=== PATIENT | female | born 1985 | race Caucasian/White ===

== ENCOUNTER 2017-05-25 09:31 | Emergency (ER) | payer OTHER ==
[2017-05-25] MEDS ORDERED: Promethazine INJ(RESTRICTED)* 25 MG/ML 1 ML VIAL IV ONE (10:48)
--- NOTE | 2017-05-25 11:04 | RAD ---
INDICATION: Shortness of breath, history of endocarditis. COMPARISON: There are no prior studies available for comparison. TECHNIQUE: A portable view of the chest was obtained. FINDINGS: The patient is status poststernotomy. The heart is within normal limits in size. The lungs are clear. No pleural effusion is seen. IMPRESSION: POSTSURGICAL CHANGES, NO EVIDENCE FOR ACUTE FINDING.
[2017-05-25 11:48] LABS: ALT 47 U/L (7-52); AST 50 U/L (13-39); Albumin 3.9 g/dL (3.2-5.2); Alkaline Phosphatase 103 U/L (34-104); Anion Gap 6 mmol/L (2-11); BUN/Creatinine Ratio 22.2 (8-20); Blood Urea Nitrogen 16 mg/dL (6-24); C Reactive Protein < 1.00 mg/L (< 5.00); CO2 Carbon Dioxide 24 mmol/L (22-32); Calcium 9.4 mg/dL (8.6-10.3); Chloride 105 mmol/L (101-111); EGFR African American 123.2 (>60); EGFR Non-African American 95.8 (>60); Globulin 3.1 g/dL (2-4); Glucose 120 mg/dL (70-100); Magnesium 2.1 mg/dL (1.9-2.7); Potassium 4.2 mmol/L (3.5-5.0); Sodium 135 mmol/L (133-145)
[2017-05-25 11:49] LABS: Urine Bacteria Absent (Absent); Urine Bilirubin Negative (Negative); Urine Glucose Negative (Negative); Urine Nitrite Negative (Negative)
[2017-05-25] MEDS ORDERED: PROMETHAZINE IVPB ONE (12:00)
[2017-05-25] MEDS ORDERED: NS 0.9% IVPB ONE (12:00)
[2017-05-25 13:54] LABS: Hematocrit 38 % (35-47); Hemoglobin 12.5 g/dl (12.0-16.0); Mean Corpuscular HGB Conc 33 g/dl (31-36); Mean Corpuscular Hemoglobin 29 pg (27-31); Mean Corpuscular Volume 89 fL (80-97); Mean Platelet Volume 7 um3 (7.4-10.4); Red Blood Count 4.29 10^6/ul (4.0-5.4); Red Cell Distribution Width 17 % (10.5-15); White Blood Count 5.3 10^3/ul (3.5-10.8)
--- NOTE | 2017-05-25 14:24 | ED ---
HPI Cardiac - HPI Summary HPI Summary: Pt here w/ SOB and KISER x 1 week - associated sx of hand/feet swelling. Went to [facility] - no answers for cause of sx. Went to [place] Thursday. D/ t h/o endocarditis w/ AVR, she had slightly elevated BNP (150's) and echo which showed some fluid. Pt was started on IV lasix and sent home w/ PO lasix which she's continued to take. Hands and feet are not as swollen today but SOB/KISER has not improved. She takes coumadin and last INR last week was 2.9. She missed a dose last night but took dose this morning. Denies fever, chills, cough, back pain, tachycardia, palpitations. Smokes tobacco. Nausea w/o vomiting - zofran gives her TELLEZ -prefers phenergan. No ab pain, diarrhea. 8 weeks post - developed a hematoma after and was given narcotic for pain control. Reports she withdrew on her own 2 weeks ago. After, she started drinking poppy seed tea to help w/ her anxiety - unfortunately this had opioid effects and she stopped that but was started on clonidine and xanax - feels these are helping withdrawal and has been on these for 5 days now. Follows w/ PCP - no formal counselor or MH support at this time. Sleeping okay w/ but sometimes she doesn't. Partner took off from work when she had hematoma but hasn't been off lately -had to go back to work. - History of Current Complaint Chief Complaint: EDShortnessOfBreath Stated Complaint: SOB/WEAK Time Seen by Provider: 05/25/17 10:16 Hx Obtained From: Patient, Family/Chief Solution Architect - Pain Intensity: 0 - Allergy/Home Medications Allergies/Adverse Reactions: Allergies Allergy/AdvReac Type Severity Reaction Status Date / Time No Known Allergies Allergy Verified 05/25/17 09:59 Home Medications: Home Medications ALPRAZolam TAB* [Xanax TAB*] 0.5 mg PO Q8H 05/25/17 [History Confirmed 05/25/17] Warfarin TAB(*) [Coumadin TAB(*)] 5 mg PO .Q TUES/TH05/25/17 [History Confirmed 05/25/17] Warfarin TAB(*) [Coumadin TAB(*)] 6 mg PO .Q M,W,F,SA,JOINER 05/25/17 [History Confirmed 05/25/17] cloNIDine TAB* [Catapres 0.1 MG TAB*] 0.1 mg PO Q8H 05/25/17 [History Confirmed 05/25/17] PMH/Surg Hx/FS Hx/Imm Hx Previously Healthy: Yes Endocrine/Hematology History: Reports: Hx Anticoagulant Therapy - coumadin, Other Endocrine/Hematological Disorders - pelvic hematoma s/p delivery of child in March 2017 Denies: Hx Diabetes Cardiovascular History: Reports: Hx Valvular Heart Disease - AVR, Other Cardiovascular Problems/Disorders - ENDOCARDITIS w/ AVR Denies: Hx Congestive Heart Failure, Hx Hypertension Respiratory History: Denies: Hx Asthma, Hx Chronic Obstructive Pulmonary Disease (COPD) GI History: Reports: Other GI Disorders - Hep C History: Denies: Hx Renal Disease Psychiatric History: Reports: Hx Anxiety, Hx Depression, Hx Substance Abuse - opioids, ivda - Surgical History Surgery Procedure, Year, and Place: AORTIC VALVE REPLACEMENT- 03/2014. RT. OOPHORECTOMY Infectious Disease History: No Infectious Disease History: Reports: Hx Hepatitis - c Denies: Traveled Outside the [place] in Last 30 Days - Family History Known Family History: Positive: None - Social History Lives: With Family Alcohol Use: Occasionally Hx Substance Use: Yes Substance Use Type: Reports: Prescribed Substance Use Comment - Amount & Last Used: hx of iv drug use- Quit 2010 /On Xanax/Clonodine Hx Tobacco Use: Yes Smoking Status (MU): Current Every Day Smoker Review of Systems Constitutional: Negative Negative: Fever, Chills, Fatigue Eyes: Negative ENT: Negative Cardiovascular: Negative Positive: Shortness Of Breath - W/ KISER Positive: Nausea. Negative: Abdominal Pain, Vomiting, Diarrhea Positive: no symptoms reported Musculoskeletal: Negative Skin: Negative Neurological: Negative Psychological: Other - see HPI All Other Systems Reviewed And Are Negative: Yes Physical Exam Triage Information Reviewed: Yes Vital Signs On Initial Exam: Initial Vitals Temp Pulse Resp BP Pulse Ox 96.6 F 80 20 118/83 100 05/25/17 09:34 05/25/17 09:34 05/25/17 09:34 05/25/17 09:34 05/25/17 09:34 Vital Signs Reviewed: Yes Appearance: Positive: Well-Appearing - no SOB at rest, resting comfortably on stretcher, No Pain Distress, Well-Nourished Skin: Positive: Warm, Dry Head/Face: Positive: Normal Head/Face Inspection Eyes: Positive: Normal, EOMI ENT: Positive: Hearing grossly normal, Pharynx normal - mucosa moist Neck: Positive: Supple Respiratory/Lung Sounds: Positive: Clear to Auscultation, Breath Sounds Present. Negative: Rales, Rhonchi, Wheezes, Unable to speak in full sentences - speaking in full sentences w/o difficulty, hesitation or interruption - no coughing Cardiovascular: Positive: RRR, Pulses are Symmetrical in both Upper and Lower Extremities, Other - NTTP, S1 - mechanical valve sounds, S2. Negative: Rub, Leg Edema Left, Leg Edema Right Abdomen Description: Positive: Nontender, Soft - no ascites Bowel Sounds: Positive: Present Musculoskeletal: Positive: Normal, Strength/ROM Intact Neurological: Positive: Normal, Sensory/Motor Intact, Alert, Oriented to Person Place, Time, CN Intact II-III Psychiatric: Positive: Other - concerned but calm and cooperative - [place] Coma Scale Coma Scale Total: 15 Diagnostics - Vital Signs Vital Signs Temp Pulse Resp BP Pulse Ox 05/25/17 13:49 100 05/25/17 13:30 53 22 118/73 97 05/25/17 13:06 67 22 113/70 97 05/25/17 13:03 103 97 05/25/17 12:30 53 23 125/78 99 05/25/17 12:00 50 22 137/83 99 05/25/17 11:30 51 20 137/83 97 05/25/17 11:00 61 14 152/82 97 05/25/17 10:30 142/78 05/25/17 10:00 61 13 135/84 99 05/25/17 09:54 97.9 F 63 17 140/86 99 05/25/17 09:51 62 99 05/25/17 09:34 96.6 F 80 20 118/83 100 - Laboratory Lab Results: Lab Results 05/25/17 05/25/17 05/25/17 Range/Units 11:22 11:22 11:22 WBC (3.5-10.8) 10^3/ul RBC (4.0-5.4) 10^6/ul Hgb (12.0-16.0) g/dl Hct (35-47) % MCV (80-97) fL MCH (27-31) pg MCHC (31-36) g/dl RDW (10.5-15) % Plt Count (150-450) 10^3/ul MPV (7.4-10.4) um3 Neut % (Auto) (38-83) % Lymph % (Auto) (25-47) % [place] % (Auto) (1-9) % Eos % (Auto) (0-6) % Baso % (Auto) (0-2) % Absolute Neuts (auto) (1.5-7.7) 10^3/ul Absolute Lymphs (auto) (1.0-4.8) 10^3/ul Absolute Monos (auto) (0-0.8) 10^3/ul Absolute Eos (auto) (0-0.6) 10^3/ul Absolute Basos (auto) (0-0.2) 10^3/ul Absolute Nucleated RBC 10^3/ul Nucleated RBC % INR (Anticoag Therapy) 1.62 H (0.89-1.11) APTT 44.5 H (26.0-36.3) seconds D-Dimer, Quantitative < 200 (Less Than 230) ng/mL Sodium 135 (133-145) mmol/L Potassium 4.2 (3.5-5.0) mmol/L Chloride 105 (101-111) mmol/L Carbon Dioxide 24 (22-32) mmol/L Anion Gap 6 (2-11) mmol/L BUN 16 (6-24) mg/dL Creatinine 0.72 (0.51-0.95) mg/dL Est GFR ( Amer) 123.2 (>60) Est GFR (Non-Af Amer) 95.8 (>60) BUN/Creatinine Ratio 22.2 H (8-20) Glucose 120 H (70-100) mg/dL Calcium 9.4 (8.6-10.3) mg/dL Magnesium 2.1 (1.9-2.7) mg/dL Total Bilirubin 0.40 (0.2-1.0) mg/dL AST 50 H (13-39) U/L ALT 47 (7-52) U/L Alkaline Phosphatase 103 (34-104) U/L Troponin I 0.00 (<0.04) ng/mL C-Reactive Protein < 1.00 (< 5.00) mg/L B-Natriuretic Peptide 50 ( - 100) pg/mL Total Protein 7.0 (6.4-8.9) g/dL Albumin 3.9 (3.2-5.2) g/dL Globulin 3.1 (2-4) g/dL Albumin/Globulin Ratio 1.3 (1-3) Urine Color Urine Appearance Urine pH (5-9) Ur Specific [place] (1.010-1.030) Urine Protein (Negative) Urine Ketones (Negative) Urine Blood (Negative) Urine Nitrate (Negative) Urine Bilirubin (Negative) Urine Urobilinogen (Negative) Ur Leukocyte Esterase (Negative) Urine WBC (Auto) (Absent) Urine RBC (Auto) (Absent) Ur Squamous Epith Cells (Absent) Amorphous Crystals (Absent) Urine Bacteria (Absent) Urine Glucose (Negative) 05/25/17 05/25/17 Range/Units 11:22 11:28 WBC 5.3 (3.5-10.8) 10^3/ul RBC 4.29 (4.0-5.4) 10^6/ul Hgb 12.5 (12.0-16.0) g/dl Hct 38 (35-47) % MCV 89 (80-97) fL MCH 29 (27-31) pg MCHC 33 (31-36) g/dl RDW 17 H (10.5-15) % Plt Count 305 (150-450) 10^3/ul MPV 7 L (7.4-10.4) um3 Neut % (Auto) 77.3 (38-83) % Lymph % (Auto) 16.2 L (25-47) % [place] % (Auto) 5.3 (1-9) % Eos % (Auto) 0.5 (0-6) % Baso % (Auto) 0.7 (0-2) % Absolute Neuts (auto) 4.1 (1.5-7.7) 10^3/ul Absolute Lymphs (auto) 0.9 L (1.0-4.8) 10^3/ul Absolute Monos (auto) 0.3 (0-0.8) 10^3/ul Absolute Eos (auto) 0 (0-0.6) 10^3/ul Absolute Basos (auto) 0 (0-0.2) 10^3/ul Absolute Nucleated RBC 0 10^3/ul Nucleated RBC % 0.1 INR (Anticoag Therapy) (0.89-1.11) APTT (26.0-36.3) seconds D-Dimer, Quantitative (Less Than 230) ng/mL Sodium (133-145) mmol/L Potassium (3.5-5.0) mmol/L Chloride (101-111) mmol/L Carbon Dioxide (22-32) mmol/L Anion Gap (2-11) mmol/L BUN (6-24) mg/dL Creatinine (0.51-0.95) mg/dL Est GFR ( Amer) (>60) Est GFR (Non-Af Amer) (>60) BUN/Creatinine Ratio (8-20) Glucose (70-100) mg/dL Calcium (8.6-10.3) mg/dL Magnesium (1.9-2.7) mg/dL Total Bilirubin (0.2-1.0) mg/dL AST (13-39) U/L ALT (7-52) U/L Alkaline Phosphatase (34-104) U/L Troponin I (<0.04) ng/mL C-Reactive Protein (< 5.00) mg/L B-Natriuretic Peptide ( - 100) pg/mL Total Protein (6.4-8.9) g/dL Albumin (3.2-5.2) g/dL Globulin (2-4) g/dL Albumin/Globulin Ratio (1-3) Urine Color Yellow Urine Appearance Cloudy Urine pH 7.0 (5-9) Ur Specific [place] 1.012 (1.010-1.030) Urine Protein Negative (Negative) Urine Ketones Negative (Negative) Urine Blood 2+ H (Negative) Urine Nitrate Negative (Negative) Urine Bilirubin Negative (Negative) Urine Urobilinogen Negative (Negative) Ur Leukocyte Esterase 1+ H (Negative) Urine WBC (Auto) 1+(6-10/hpf) H (Absent) Urine RBC (Auto) Trace(0-2/hpf) (Absent) Ur Squamous Epith Cells Present H (Absent) Amorphous Crystals Present H (Absent) Urine Bacteria Absent (Absent) Urine Glucose Negative (Negative) Result Diagrams: 05/25/17 11:22 05/25/17 11:22 Lab Statement: Any lab studies that have been ordered have been reviewed, and results considered in the medical decision making process. Disposition - Course Course Of Treatment: Pt presents w/ 1 week h/o SOB/KISER/HAND&FOOT SWELLING. Was most recently seen by Cait who found "BNP to be in 150's" and "echocardiogram w / little fluid" per . She has h/o AVR and take coumadin which is not in therapeutic (1.6) - DDIMER was checked and < 200. BNP 50. Labs and vital signs are unremarkable for infection. CXR is w/o acute pathology. Discussed results with Dr. Langley who feels pt is okay for d/c w/o echocardiogram today however needs f/u w/ Clarke. Pt advised to continue lasix as directed because it seems to be helping. Reviewed danger s/sx of when to return to ED. Also encouraged to continue plan w/ PCP re: detox/withdrawal sx and advised referral to counselor. Pt and agree w/ plan. - Diagnoses Provider Diagnoses: SOB (shortness of breath) on exertion, S/P AVR, Anxiety - Physician Notifications Discussed Care Of Patient With: Devin Langley - okay to d/c w/o further testing for cardiac path - f/u w/ Dr. Mir Discharge - Discharge Plan Condition: Stable Disposition: HOME Prescriptions: Promethazine TAB* [Phenergan TAB*] 25 mg PO Q6H PRN #12 tab PRN Reason: Nausea Patient Education Materials: Dyspnea (ED), Opioid Withdrawal (ED) Referrals: Homero MOSES,Jean Carlos Cano [Primary Care Provider] - Inderjit Mir MD [Medical Doctor] - Additional Instructions: Continue lasix as directed Avoid exertion/exercise until cleared by Dr. Mir - call today to schedule follow-up appointment this week in the event further testing is required. *If you develop fever, chills, worsening of shortness of breath, chest pain, intractable vomiting, abdominal pain, syncope, abnormal bleeding, return to ED It is also advised you follow-up with PCP regarding opioid dependence/ withdrawal symptoms - do not stop medications - speak with PCP about further treatment, etc. May seek counseling for anxiety - will help in the process of dealing with withdrawal, taking care of a , etc. *If you develop suicidal or homicidal ideations, return to ED Follow-up with PCP regarding coumadin leve as well - not therapeutic today - may need increased dose with blood recheck in 3 days.
[2017-05-25 15:21] VITALS: BP 115/68
== END 2017-05-25 15:23 | disposition home or self-care (01) ==
LOC: ED 09:31
DX: R06.02 Shortness of breath (principal); R11.0 Nausea
CPT/HCPCS: 36415; 71010; 80053; 81003; 81015; 83735; 83880; 84484; 85025; 85379; 85610; 85730; 86140; 87040; 87086; 93005; 96365; 99282; J2550

== ENCOUNTER 2018-04-24 19:49 | Emergency (ER) | payer OTHER ==
--- NOTE | 2018-04-24 20:12 | ED ---
Palpitations / Dysrhythmia - HPI Summary HPI Summary: This patient is a 32 year old F presenting to [facility] with a chief complaint of palpitations that began 2 days ago. The patient rates the pain 0/10 in severity. Symptoms aggravated by nothing. Symptoms alleviated by nothing. Patient reports fatigue, diarrhea (began one week ago), dysuria, headache ( chronic), anxiety, and depression. Patient denies double vision, blurred vision , sore throat, neck pain, CP, SOB, abd pain, back pain, hematuria, and edema. Pt had an aortic valve replacement for endocarditis in 2013. Pt states she is on Coumadin, but has not checked her Coumadin levels in a little while. - History of Current Complaint Chief Complaint: EDDysrhythmPalp Hx Obtained From: Patient Onset/Duration: Sudden Onset, Lasting Days, Still Present Timing: Constant Severity Initially: Mild Severity Currently: Mild Character: Pounding Aggravating: Nothing Alleviating: Nothing - Allergy/Home Medications Allergies/Adverse Reactions: Allergies Allergy/AdvReac Type Severity Reaction Status Date / Time No Known Allergies Allergy Verified 05/25/17 09:59 Home Medications: Home Medications Omeprazole 20 mg PO DAILY 04/24/18 [History Confirmed 04/24/18] PMH/Surg Hx/FS Hx/Imm Hx Previously Healthy: No Endocrine/Hematology History: Reports: Hx Anticoagulant Therapy - coumadin, Other Endocrine/Hematological Disorders - pelvic hematoma s/p delivery of child in March 2017 Denies: Hx Diabetes Cardiovascular History: Reports: Hx Valvular Heart Disease - AVR, Other Cardiovascular Problems/Disorders - ENDOCARDITIS w/ AVR Denies: Hx Congestive Heart Failure, Hx Hypertension Respiratory History: Denies: Hx Asthma, Hx Chronic Obstructive Pulmonary Disease (COPD) GI History: Reports: Other GI Disorders - Hep C History: Denies: Hx Renal Disease Psychiatric History: Reports: Hx Anxiety, Hx Depression, Hx Substance Abuse - opioids, ivda - Surgical History Surgery Procedure, Year, and Place: AORTIC VALVE REPLACEMENT- 03/2014. RT. OOPHORECTOMY Infectious Disease History: No Infectious Disease History: Reports: Hx Hepatitis - c Denies: Traveled Outside the [place] in Last 30 Days - Family History Known Family History: Positive: None - Social History Occupation: Employed Full-time Lives: With Family Alcohol Use: Occasionally Hx Substance Use: Yes Substance Use Type: Reports: Prescribed Substance Use Comment - Amount & Last Used: hx of iv drug use- Quit 2010 /On Xanax/Clonodine Hx Tobacco Use: Yes Smoking Status (MU): Current Every Day Smoker Review of Systems Positive: Fatigue. Negative: Fever Negative: Blurred Vision, Diplopia Negative: Sore Throat Negative: Chest Pain Negative: Shortness Of Breath Positive: Diarrhea. Negative: Abdominal Pain Positive: dysuria Negative: Edema Negative: Bruising Positive: Headache Positive: Anxious, Depressed All Other Systems Reviewed And Are Negative: No Physical Exam - Summary Physical Exam Summary: Appearance: Alert, conversive, nontoxic appearing Skin: Warm, dry, no mottling, no rashes, no contusions HEENT: EOMI, PERRL, moist mucous membranes Neck: No masses on the neck, supple Respiratory: Clear to auscultation, breath sounds present, no rales, no rhonchi , no wheezes Cardiovascular: RRR, pulses are symmetrical in both lower and upper extremities Abdomen: Soft, non-tender Bowel Sounds: Present Musculoskeletal: No CVA tenderness, no obvious deformity, moving all extremities in a grossly normal manner Neurological: A&Ox3, CN II-XII Intact, moving all extremities symmetrically Psychiatric: Normal affect and mood Triage Information Reviewed: Yes Vital Signs On Initial Exam: Initial Vitals Temp Pulse Resp BP Pulse Ox 97.3 F 90 18 133/93 100 04/24/18 19:54 04/24/18 19:54 04/24/18 19:54 04/24/18 19:54 04/24/18 19:54 Vital Signs Reviewed: Yes Diagnostics - Vital Signs Vital Signs Temp Pulse Resp BP Pulse Ox 04/24/18 19:54 97.3 F 90 18 133/93 100 - Laboratory Result Diagrams: 04/24/18 21:17 04/24/18 21:17 Lab Statement: Any lab studies that have been ordered have been reviewed, and results considered in the medical decision making process. - Radiology CXR Radiology Interpretation Completed By: ED Physician - CXR reveals, per ED physician, no acute disease. 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 Performed a butterfly on L EJ Second Eval Re-Evaluation Time: 22:52 Change: Unchanged Comment: Discussed results and plan of care with patient. Patient reports she has been having constant vaginal bleeding for the last three months. Course/Dx - Course Course Of Treatment: This patient is a 32 year old F presenting to [facility] with a chief complaint of palpitations that began 2 days ago. Pt had an aortic valve replacement for endocarditis in 2013. Physical Exam Findings: Nml. An EKG reveals normal sinus rhythm at 83 BPM and an old inferior infarct. CXR reveals, per ED physician, no acute disease. Bloodwork and UA obtained. In the ED course the patient was given morphine. Patient will be discharged with follow up from PCP. The patient is agreeable with this plan. - Diagnoses Provider Diagnoses: Iron deficiency, Anemia Discharge - Sign-Out/Discharge Documenting (check all that apply): Patient Departure - Discharge home - Discharge Plan Referrals: Homero MOSES,Jean Carlos Cano [Primary Care Provider] - Attestations Scribe Attestation: This is tal Alvarez documenting for attending Cheyanne Rodriguez MD. User Type: Provider with Scribe Provider Attestation: The documentation recorded by the scribe accurately reflects the service I personally performed and the decisions made by me.
[2018-04-24 20:43] LABS: Urine Appearance Clear; Urine Blood Negative (Negative); Urine Color Yellow; Urine Ketones Negative (Negative); Urine Protein Negative (Negative); Urine Specific Gravity 1.025 (1.010-1.030); Urine Urobilinogen Negative (Negative)
[2018-04-24 21:34] LABS: ABS Basophils 0.1 10^3/ul (0-0.2); ABS Eosinophils 0 10^3/ul (0-0.6); ABS Lymphocytes 1.6 10^3/ul (1.0-4.8); ABS Monocytes 0.4 10^3/ul (0-0.8); ABS Neutrophils 3.8 10^3/ul (1.5-7.7); ABS Nucleated RBC 0 10^3/ul; Hematocrit 30 % (35-47); Hemoglobin 9.6 g/dl (12.0-16.0); Mean Corpuscular HGB Conc 33 g/dl (31-36); Mean Corpuscular Hemoglobin 23 pg (27-31); Mean Corpuscular Volume 71 fL (80-97); Mean Platelet Volume 7.1 um3 (7.4-10.4); Platelet Count 339 10^3/ul (150-450); Red Blood Count 4.16 10^6/ul (4.00-5.40); Red Cell Distribution Width 17 % (10.5-15)
[2018-04-24 21:37] LABS: INR 2.88 (0.77-1.02)
[2018-04-24 21:41] LABS: EGFR Non-African American 76.4 (>60)
[2018-04-24] MEDS ORDERED: Morphine INJ* 2 MG/ML 1 ML SYRINGE (TWO MG - NEW SYRINGE VERSION) IM ONE (21:48)
[2018-04-24 22:05] LABS: Eosinophil % 0.8 % (0-6); Lymphocyte % 27.4 % (25-47); Nucleated Red Blood Cells % 0
[2018-04-24 23:16] VITALS: BP 120/80
--- NOTE | 2018-04-25 07:26 | RAD ---
HISTORY: palpitations COMPARISONS: May 25, 2017 VIEWS: 1: frontal portable view of the chest at 8:32 PM FINDINGS: LINES AND TUBES: None. CARDIOMEDIASTINAL SILHOUETTE: The cardiomediastinal silhouette is normal for portable technique. PLEURA: The costophrenic angles are sharp. No pleural abnormalities are noted. LUNG PARENCHYMA: The lungs are clear. ABDOMEN: The upper abdomen is clear. There is no subphrenic gas. BONES AND SOFT TISSUES: The patient is status post median sternotomy. IMPRESSION: NO ACTIVE CARDIOPULMONARY DISEASE. R1
== END 2018-04-24 23:14 | disposition home or self-care (01) ==
LOC: ED 19:49
DX: D50.9 Iron deficiency anemia, unspecified (principal); F17.200 Nicotine dependence, unspecified, uncomplicated; Z79.01 Long term (current) use of anticoagulants; Z95.2 Presence of prosthetic heart valve
CPT/HCPCS: 36415; 71045; 80053; 81003; 84443; 84702; 85025; 85610; 93005; 96372; 99283

== ENCOUNTER 2019-12-26 12:50 | Inpatient (IN) | payer OTHER ==
--- NOTE | 2019-12-26 13:06 | ED ---
Complex/Multi-Sys Presentation - HPI Summary HPI Summary: 34 year old F presenting to [facility] with a chief complaint of headaches, a fever, edema, a rash, shortness of breath, pain with breathing, and pus from a swollen area on her left arm where she had blood drawn 4 days ago. Symptoms aggravated by nothing. Symptoms alleviated by nothing. Patient denies any current sore throat. She reports a history of IV drug use but denies recent use. The patient is prescribed blood thinners. She states that she missed too many appointments with her ad copy writer who discontinued her care. She also reports drinking heavily during that time but denies current alcohol use. Medication list reviewed. Allergy list reviewed. - History Of Current Complaint Time Seen by Provider: 12/26/19 12:55 Hx Obtained From: Patient Onset/Duration: Still Present Timing: Constant Aggravating Factor(s): None Alleviating Factor(s): None - Allergies/Home Medications Allergies/Adverse Reactions: Allergies Allergy/AdvReac Type Severity Reaction Status Date / Time No Known Allergies Allergy Verified 05/25/17 09:59 Home Medications: Home Medications Warfarin TAB(*) [Coumadin TAB(*)] 6 mg PO MOWEFR 05/25/17 [History Confirmed ] Warfarin TAB(*) [Coumadin TAB(*)] 7 mg PO TUTHSA 05/25/17 [History Confirmed ] Amitriptyline TAB* [Elavil TAB*] 100 mg PO BEDTIME 12/26/19 [History Confirmed 12/26/19] Buprenorphine TAB* [Subutex TAB*] 2 mg SL TID 12/26/19 [History Confirmed ] Omeprazole (Nf) [Prilosec (NF)] 40 mg PO DAILY 12/26/19 [History Confirmed 12/25] Propranolol TAB* [Inderal TAB*] 60 mg PO DAILY 12/26/19 [History Confirmed 12/25] SUMAtriptan SQ* [Imitrex SQ*] 6 mg SUBCUT ONCE PRN 12/26/19 [History Confirmed 12/26/19] Topiramate TAB(*) [Topamax 100 mg tab] 100 mg PO BID 12/26/19 [History Confirmed 12/26/19] Venlafaxine CAP (NF) [Effexor CAP (NF)] 75 mg PO DAILY 12/26/19 [History Confirmed 12/26/19] hydrOXYzine pamoate [Vistaril] 50 mg PO BID 12/26/19 [History Confirmed 12/26/19 ] PMH/Surg Hx/FS Hx/Imm Hx Endocrine/Hematology History: Reports: Hx Anticoagulant Therapy - coumadin, Other Endocrine/Hematological Disorders - pelvic hematoma s/p delivery of child in March 2017 Denies: Hx Diabetes Cardiovascular History: Reports: Hx Valvular Heart Disease - AVR, Other Cardiovascular Problems/Disorders - ENDOCARDITIS w/ AVR Denies: Hx Congestive Heart Failure, Hx Hypertension Respiratory History: Denies: Hx Asthma, Hx Chronic Obstructive Pulmonary Disease (COPD) GI History: Reports: Other GI Disorders - Hep C History: Denies: Hx Renal Disease Psychiatric History: Reports: Hx Anxiety, Hx Depression, Hx Substance Abuse - opioids, ivda - Surgical History Surgical History: Yes Surgery Procedure, Year, and Place: AORTIC VALVE REPLACEMENT- 03/2014. RT. OOPHORECTOMY Infectious Disease History: Reports: Hx Hepatitis - c Denies: Traveled Outside the [place] in Last 30 Days - Family History Known Family History: Positive: Diabetes - Social History Alcohol Use: Occasionally Hx Substance Use: Yes Substance Use Type: Reports: Prescribed Substance Use Comment - Amount & Last Used: hx of iv drug use- Quit 2010 /On Xanax/Clonodine Hx Tobacco Use: Yes Smoking Status (MU): Current Every Day Smoker Review of Systems Positive: Fever Negative: Sore Throat Positive: Shortness Of Breath, Other - Pain with breathing Positive: Edema, Other - Pus from swelling on left arm Positive: Rash Positive: Headache All Other Systems Reviewed And Are Negative: Yes Physical Exam - Summary Physical Exam Summary: Constitutional: Well-developed, Well-nourished, Alert. (-) Distressed Skin: Multiple erythematous maculopapular lesions bilateral arms HENT: Normocephalic; Atraumatic Eyes: Conjunctiva normal Neck: Musculoskeletal ROM normal neck. (-) JVD, (-) Stridor, (-) Tracheal deviation Cardio: Rhythm regular, rate normal, mechanical sounds noted; Intact distal pulses; The pedal pulses are 2+ and symmetric. Radial pulses are 2+ and symmetric. (-) Murmur Pulmonary/Chest wall: Effort normal. (-) Respiratory distress, (-) Wheezes, (-) Rales Abd: Soft, (-) tenderness, (-) Distension, (-) Guarding, (-) Rebound Musculoskeletal: (-) Edema Lymph: (-) Cervical adenopathy Neuro: Alert, Oriented x3 Psych: Mood and affect Normal Triage Information Reviewed: Yes Vital Signs Reviewed: Yes Procedures - Sedation Patient Received Moderate/Deep Sedation with Procedure: No Diagnostics - Laboratory Result Diagrams: 12/26/19 13:33 12/26/19 13:33 Lab Statement: Any lab studies that have been ordered have been reviewed, and results considered in the medical decision making process. - Radiology Chest x-ray Radiology Interpretation Completed By: Radiologist Summary of Radiographic Findings: 1. No acute cardiac pulmonary process by radiograph. 2. Status post aVR. ED physician has reviewed this report. - EKG 13:40 Cardiac Rate: NL - 78 BPM EKG Rhythm: Sinus Rhythm Summary of EKG Findings: No ischemic changes. Dr. Harmon has reviewed and interpreted this EKG. Complex Multi-Symp Course/Dx Course Of Treatment: 34 year old F presenting to [facility] with a chief complaint of headaches, a fever, edema, a rash, shortness of breath, pain with breathing, and pus from a swollen area on her left arm where she had blood drawn 4 days ago. Physical exam findings: Mechanical sounds noted, multiple erythematous maculopapular lesions bilateral arms. An EKG reveals sinus rhythm rate of 78 BPM , no ischemic changes. CXR reveals, per radiologist, 1. No acute cardiac pulmonary process by radiograph. 2. Status post aVR. Laboratory results with no significant abnormalities except for an INR of 3.11, carbon dioxide of 19, glucose of 108, C-reactive protein of 136.12, B-natriuretic peptide of 105, Hgb of 9.8, Hct of 30, MCV of 76, MCH of 25, RDW of 18, and ESR of 45. In the ED course, the patient was given Maxipime, normal saline, Rocephin, and Vancomycin. We discussed patient care with Dr. Langley at 17:15 who recommended admitting the patient for an echocardiogram in the morning. Discussed with Dr. Hughes at 17:25 who accepts the patient for admission. Patient will be admitted. The patient is agreeable with this plan. - Diagnoses Differential Diagnoses/HQI/PQRI: Other - Endocarditis Provider Diagnoses: Febrile illness - Physician Notifications Discussed Care Of Patient With: Devin Langley Time Discussed With Above Provider: 17:15 Instructed by Provider To: Other - Discussed with Dr. Langley who is aware of the patient, the patient will ondergo an echocardiogram in the morning. [17:25] Discussed with Dr. Hughes who accepts the patient for admission. - Critical Care Time Critical Care Statement: Critical care time is provided exclusive of any time spent performing procedures. Discharge ED - Sign-Out/Discharge Documenting (check all that apply): Patient Departure - Discharge Plan Condition: Stable Disposition: ADMITTED TO [facility] Referrals: Homero MOSES,Jean Carlos Cano [Primary Care Provider] - - Billing Disposition and Condition Condition: STABLE Disposition: Admitted to [facility] - Attestation Statements Document Initiated by Meghan: Yes Documenting Scribe: Jacqueline Dave Provider For Whom Alonaibe is Documenting (Include Credential): Ney Harmon DO Scribe Attestation: Jacqueline Bustos scribed for Ney Harmon DO on 12/26/19 at 1833. Scribe Documentation Reviewed: Yes Provider Attestation: The documentation as recorded by the Jacqueline parada accurately reflects the service I personally performed and the decisions made by , Ney Harmon DO Status of Scribe Document: Viewed
[2019-12-26 13:55] LABS: INR 3.11 (0.82-1.09)
[2019-12-26 14:07] LABS: ALT 16 U/L (7-52); AST 21 U/L (13-39); Albumin 3.6 g/dL (3.2-5.2); Albumin/Globulin Ratio 1.1 (1-3); Alkaline Phosphatase 95 U/L (34-104); Anion Gap 7 mmol/L (2-11); BUN/Creatinine Ratio 18.7 (8-20); Blood Urea Nitrogen 14 mg/dL (6-24); C Reactive Protein 136.12 mg/L (<8.01); CO2 Carbon Dioxide 19 mmol/L (22-32); Calcium 8.6 mg/dL (8.6-10.3); Chloride 111 mmol/L (101-111); EGFR African American 108.4 (>60); EGFR Non-African American 89.6 (>60); Globulin 3.3 g/dL (2-4); Glucose 108 mg/dL (70-100); Potassium 3.7 mmol/L (3.5-5.0); Sodium 137 mmol/L (135-145); Total Protein 6.9 g/dL (6.4-8.9)
[2019-12-26 15:11] LABS: Hematocrit 30 % (35-47); Hemoglobin 9.8 g/dL (12.0-16.0); Mean Corpuscular HGB Conc 32 g/dL (31-36); Mean Corpuscular Hemoglobin 25 pg (27-31); Mean Corpuscular Volume 76 fL (80-97); Mean Platelet Volume 7.6 fL (7.4-10.4); Platelet Count 213 10^3/uL (150-450); Red Blood Count 3.96 10^6 /uL (3.70-4.87); Red Cell Distribution Width 18 % (10-15); White Blood Count 5.5 10^3/uL (3.5-10.8)
[2019-12-26 15:23] LABS: Erythrocyte Sed Rate 45 mm/Hr (0-19)
[2019-12-26] MEDS ORDERED: cefTRIAXone(*) 1 GM in NS 0.9% 50 ML* 50 ML IVPB ONE (16:56)
[2019-12-26] MEDS ORDERED: Cefepime 2 GM in Dextrose(*) 2 GM/50 ML BAG IV ONE (17:28)
[2019-12-26] MEDS ORDERED: Vancomycin(*) 1,000 MG in NS 0.9% 250 ML* 250 ML IV ONE (17:28)
[2019-12-26] MEDS ORDERED: NS 0.9% 1000 ML** 1,000 ML IV ONE (17:30)
[2019-12-26] MEDS ORDERED: Magnesium Hydroxide LIQ* 30 ML UDC PO PRN (19:25)
[2019-12-26] MEDS ORDERED: Vancomycin per Pharmacy* NOTE FOLLOW UP SCH (20:00)
[2019-12-26] MEDS ORDERED: VANCOMYCIN 1000 MG IV ONE ×2 (21:00)
[2019-12-26 22:39] LABS: HCG Pregnancy < 0.60 mIU/mL
[2019-12-26] MEDS: Buprenorphine TAB* 2 MG TAB.SL SL SCH (23:32)
[2019-12-26] MEDS: Amitriptyline TAB* 100 MG PO SCH (23:33)
[2019-12-26] MEDS: Topiramate TAB(*) 100 MG PO SCH (23:33)
[2019-12-26] MEDS: Docusate CAP* 100 MG PO SCH (23:34)
[2019-12-26] MEDS: hydrOXYzine HCL TAB* 50 MG PO SCH (23:34)
--- NOTE | 2019-12-27 00:04 | HP ---
CC: Dr. Valentin* ADMISSION HISTORY AND PHYSICAL: DATE OF ADMISSION: 12/26/19. PRIMARY CARE PHYSICIAN: Dr. Valentin. ATTENDING PHYSICIAN: Dr. Caruso* (dictated by Bimal Marcelo NP). CHIEF COMPLAINT: Headaches, fever, pain with breathing, pus from a swollen area on the left arm. HISTORY OF PRESENT ILLNESS: Ms. Armijo is a 34-year-old female with past medical history significant for endocarditis with AVR, IV drug use, hep C, anxiety and depression, and currently on Coumadin therapy. She presented to the emergency room today with complaints of headaches, fever, pain with deep breathing. She states that she has had shortness of breath and swelling in her hands and feet x3 months. Denies any cough. States that these swelling in her hands and feet has been there for 3 months, states that it is usually always there, not typically noticed by her other providers. She has seen her PCP and states multiple cardiologists about this issue and is not sure what is going on. She states that she has been short of breath for 3 months as well. This happens intermittently. She states that she will get short of breath if she walks across her house. Usually this is happening with exertion. She has also been getting intermittent chest pain for the last 2 weeks. She currently denies chest pain, but states that she has been having this on and off for the last 2 weeks. She states that it is random and it is in left side of her chest that is sharp, usually lasts approximately 10 seconds, typically happens when she is walking or standing, and then she will stop and then it will go away. Also, has been complaining of fevers for approximately the last week. States that her T-max is 102.4. She woke up a couple of days ago with what appears to be a maculopapular rash scattered on her bilateral upper extremities. The patient states this rash does not itch at all. The patient denies any possibility of being bitten by a tick. States that this morning when she woke up she had an abscess noted to her left inner elbow. States that she poked at it and some pus came out. States that she had a blood draw 4 days ago at the same site. Denies any history of bleeding or clotting disorders. She states that she did take penicillin a couple of weeks ago for possible cellulitis to the left thigh, which she states has resolved. She denies having any abdominal symptoms. No nausea, vomiting or diarrhea. No difficulty with bowel or bladder. She states that at sometimes when her hands swell, they will go numb and she will shake them and they will go back to normal. She states that happens to her feet, but much less often. She was recently tested for COVID about 4 days ago, which came back negative. The patient does complain of some pain to her right hip for the last week or 2. While in the emergency department, she did have blood cultures drawn. She received cefepime 2 g, vancomycin 1 g, and ceftriaxone 1 g. She also received a 1 L of saline bolus. She has been afebrile. Vital signs within normal limits. Her white blood cell count is normal. She is noted with anemia today. Hemoglobin 9.8, hematocrit 30, normal white blood cell count, MCV 76, MCH 25, MCHC 32, RDW 18. Her INR is 3.11. She has a CRP of 136.12 and BNP of 105. Hospital Medicine was asked to evaluate the patient for admission. PAST MEDICAL HISTORY: 1. Endocarditis with aortic valve replacement. 2. IV drug use. 3. Hep C, treated with Epclusa. 4. Anxiety and depression. 5. Coumadin therapy. PAST SURGICAL HISTORY: 1. AVR in 03/2014. 2. Right oophorectomy. HOME MEDICATIONS: 1. Buprenorphine 2 mg sublingual t.i.d. 2. Sumatriptan 6 mg subcu once p.r.n. for migraine. 3. Amitriptyline 100 mg p.o. at bedtime. 4. Omeprazole 40 mg p.o. daily. 5. Hydroxyzine pamoate 50 mg p.o. b.i.d. 6. Warfarin 6 mg p.o. Thursday, Thursday, Thursday, and Thursday. 7. Warfarin 7 mg p.o. Thursday, , Thursday. 8. Propranolol 60 mg p.o. daily. 9. Venlafaxine 75 mg p.o. daily. 10. Topiramate 100 mg p.o. b.i.d. I did confirm all of these medications with the patient. ALLERGIES: No known drug allergies. FAMILY HISTORY: Mother with a history of diabetes mellitus and hypertension, is still living. The patient denies any other known family history. SOCIAL HISTORY: The patient smokes 1-1/2 packs per day, has smoked for the last 17 years giving her a 25-1/2-pack-year history. States last time she had any alcohol was August 2019. She is a former alcoholic. Last time she used any sort of drugs was June 2019, states that they were oral narcotics, which she got from a dentist. She has 1 child. She lives with the child's father. States that her surrogate decision maker for her would be who she describes as her daughter's father. His name is Jeff Way. CODE STATUS: Full code. REVIEW OF SYSTEMS: A 14-point review of systems was completed with this patient. Please see HPI for all pertinent positives and negatives. PHYSICAL EXAMINATION CONSTITUTIONAL: The patient is sitting up in bed, in no acute distress. VITAL SIGNS: Temp 98.4, heart rate 72, respiratory rate 16, O2 sat 98% on room air, blood pressure 113/70. HEENT: No scleral icterus noted. Mucous membranes appear moist. RESPIRATORY: Very mild expiratory wheeze right upper lobe. All other lobes clear throughout. CARDIOVASCULAR: Heart rate regular. S1 and S2 present. No murmurs, rubs or gallops noted. GI: Normoactive bowel sounds throughout. Abdomen is soft and nontender. EXTREMITIES: Trace pitting edema with significant pressure applied by the patient to left lower extremity. Trace pitting noted to ankles bilaterally. Pedal pulses present 2+ bilaterally. Cap refill equals 3 seconds. MUSCULOSKELETAL: Strength appear to be within normal limits to all extremities. NEUROLOGIC: Alert and oriented x3. PSYCH: Responds appropriately. Normal affect. SKIN: There are few random maculopapular areas noted to bilateral upper extremities; not noted on back, chest, lower legs. No drainage from any of these areas. Also with approximately 3.5 x 2 cm erythematous indurated area to left AC with surrounding normal appearing skin with a ring of surrounding erythema, does have bull's eye effect. DIAGNOSTIC STUDIES/LAB DATA: Chest x-ray: Impression states no active cardiopulmonary process by radiograph. Status post AVR. EKG: Sinus rhythm at 78 beats per minute. No significant appearing ST elevations or depressions. PAC noted. Nonspecific T-wave abnormalities. Labs: CBC, WBCs 5.5, RBCs 3.96, hemoglobin 9.8, hematocrit 30, MCV 76, MCH 25 , MCHC 32, RDW 18, platelet count 213, MPV 7.6, ESR 45, INR 3.11. Sodium 137, potassium 3.7, chloride 111, carbon dioxide 19, anion gap 7, BUN 14, creatinine 0.75, estimated GFR 89.6, BUN/creatinine ratio 18.7, glucose 108, calcium 8.6. Total bilirubin 0.30, AST 21, ALT is 16, alkaline phosphatase 95, troponin 0.00 , CRP 136.12, BNP 105, total protein 6.9, albumin 3.6, globulin 3.3, albumin/ globulin ratio 1.1. ASSESSMENT AND PLAN: Ms. Armijo is a 34-year-old female with past medical history significant for endocarditis with aortic valve replacement, intravenous drug use, hepatitis C, anxiety, depression, currently on Coumadin therapy. She presented to the emergency room with complaints of shortness of breath and swelling to her hands and feet x3 months as well as fever for 1 week with T-max 102.4. Also with mildly appearing maculopapular rash to bilateral upper extremities and a cellulitic appearing abscess to left AC. 1. Fever. Again, the patient presents with complaints of fever x1 week, T-max 102.4. She was tested for COVID with a negative result appropriately from 4 days ago. She is afebrile here in the hospital. She also is presenting with a small abscess to her left AC. She has been complaining of shortness of breath and swelling x3 months. She has a history of endocarditis and AVR. I will plan for transesophageal echocardiography tomorrow, will be n.p.o. after midnight. Blood cultures drawn. Continuing cefepime and vancomycin. UA ordered. May be COVID related versus endocarditis versus some other unknown source of infection. HIV-1 and HIV-2 screen ordered. 2. Shortness of breath and swelling x3 months. The patient states that she has seen her PCP and field marketing manager about this. unsure what is causing it. The shortness of breath is intermittent. She believes that the swelling is pretty constant. She has also been getting a chest pain to her left chest at times. It is intermittent. She currently denies this pain. It could be in relation to a heart failure versus valvular failure or prosthetic valve failure. Transesophageal echocardiography ordered for the morning. She will be n.p.o. Continue with supportive measures. TSH ordered. The patient will be placed on telemetry monitoring. 3. Abscess and cellulitis to left acromioclavicular. Apparently, this was the site of a blood draw 4 days ago. The patient states that it did not start looking the way it is now until she woke up this morning. She stated that she poked it earlier and that there was a little bit of pus that came out. I would like to get an ultrasound of this area to assess for abscess, may consider XRay if suspicion for foreign body. Again, she is already receiving vancomycin and cefepime. We will see how this progresses overnight. WBC is within normal limits. She does have an ESR 45 and then CRP of 136.12. Although the story fits for a possible infection source and pt denies being outside or noticing a tick, the area does have a bullseye appearance. I will also test for lyme. States she did not have any tape on the area just coban so the appearance of surrounding erythema is odd. 4. Rash BUE. May be in relation to the infected area to her L AC but doubtful. Does not look or present like scabies or insect bites. Pt unsure of an exposure for it to be just on her arms. Could be a viral exanthum and may continue to spread. For now, continue to monitor. 4. Aortic valve replacement. The patient does have a history of endocarditis. This may be a potential source of infection. Again, we have a transesophageal echocardiography ordered for the morning. 5. Supratherapeutic INR. INR 3.11. We will hold Coumadin for tonight. Daily INRs ordered. 6. History of intravenous drug use. Considering the patient's symptoms, it is reasonable to get a urine tox screen, although she denies any recent drug use. I do not think Social Work consult is necessary at this time unless the tox screen comes back positive. 7. FEN: The patient will be on a heart-healthy diet for now, will be n.p.o. after midnight. IV fluids at 75 mL per hour. 8. Code status: Full code. 9. DVT prophylaxis: Already with supratherapeutic INR. TEDs have been ordered. TIME SPENT: Approximately 60 minutes was spent on this admission with about half of that being [id number] with the patient for interview, exam, and reviewing plan of care. This case has been reviewed by my attending physician, Dr. Caruso, and she agrees with this plan. BIMAL MARCELO NP [id number]/CPS #: [id number] [place]
[2019-12-27 00:48] LABS: Urine Appearance Clear; Urine Bilirubin Negative (Negative); Urine Blood Negative (Negative); Urine Color Yellow; Urine Glucose Negative (Negative); Urine Ketones Negative (Negative); Urine Nitrite Negative (Negative); Urine Protein Negative (Negative); Urine Specific Gravity 1.017 (1.010-1.030); Urine Urobilinogen Negative (Negative)
[2019-12-27 00:59] LABS: Urine Benzodiazepine Screen None Detected (None Detect); Urine Opiates Screen None Detected (None Detect)
[2019-12-27] MEDS: Acetaminophen TAB* 325 MG PO PRN ×2 (02:57→08:57)
[2019-12-27] MEDS: Vancomycin(*) 1,250 MG in NS 0.9% 250 ML* 250 ML IVPB SCH ×2 (04:55→12:50)
[2019-12-27] MEDS ORDERED: Cefepime(*) 2 GM in NS 0.9% 50 ML* 50 ML IVPB SCH ×2 (06:30→09:00)
[2019-12-27] MEDS: Buprenorphine TAB* 2 MG TAB.SL SL SCH ×3 (08:57→21:32)
[2019-12-27] MEDS ORDERED: Ibuprofen TAB* 400 MG PO ONE (11:12)
[2019-12-27] MEDS: hydrOXYzine HCL TAB* 50 MG PO SCH ×2 (11:40→21:33)
[2019-12-27] MEDS: Pantoprazole TAB * 40 MG TAB PO SCH (11:40)
[2019-12-27] MEDS: Topiramate TAB(*) 100 MG PO SCH ×2 (11:40→21:33)
[2019-12-27] MEDS: Venlafaxine EXT RELEASE CAP* 75 MG PO SCH (11:41)
[2019-12-27] MEDS: Docusate CAP* 100 MG PO SCH ×2 (11:41→21:33)
[2019-12-27] MEDS: Polyethylene Glycol 3350* 17 GM PACKET PO SCH (11:41)
[2019-12-27] MEDS: Propranolol LA CAP* 60 MG PO SCH (11:41)
--- NOTE | 2019-12-27 13:12 | CONSULT ---
Consult Consult: General surgery consult CC: Arm pain and swelling HPI: We were asked to consult on this 34 yo F, history of IV drug use and endocarditis, with a likely infection of her left AC fossa. She noticed swelling in that region today and states it has worsened over the day and appreciated pus draining from the site. Reports that she had a blood draw at that site 4 days ago. Endorses swelling of her hands and feet. Denies fever, chills, nausea, emesis, chest pain, SOB, abd pain, change in bowel movements or urination. Surgical history: AVR 2014. Right oophorectomy. Denies problems ever with anesthesia, bleeding, or clotting. PMH: IV drug use. Hep C. Endocarditis with aortic valve replacement. Anxiety. Depression. Social history: Smokes 1.5 PPD for 15 years. No alcohol use since August 2019 , former alcoholic. Denies any drug use otherwise since last year. Family history: Mother diabetes. Otherwise, noncontributory. Home Medications Medication Instructions Recorded Confirmed Type Warfarin TAB(*) [Coumadin TAB(*)] 6 mg PO MOWEFR 05/25/17 12/26/19 History Warfarin TAB(*) [Coumadin TAB(*)] 7 mg PO TUTHSA 05/25/17 12/26/19 History Amitriptyline TAB* [Elavil TAB*] 100 mg PO BEDTIME 12/26/19 12/26/19 History Buprenorphine TAB* [Subutex TAB*] 2 mg SL TID 12/26/19 12/26/19 History Omeprazole (Nf) [Prilosec (NF)] 40 mg PO DAILY 12/26/19 12/26/19 History Propranolol TAB* [Inderal TAB*] 60 mg PO DAILY 12/26/19 12/26/19 History SUMAtriptan SQ* [Imitrex SQ*] 6 mg SUBCUT ONCE PRN 12/26/19 12/26/19 History Topiramate TAB(*) [Topamax 100 mg 100 mg PO BID 12/26/19 12/26/19 History tab] Venlafaxine CAP (NF) [Effexor CAP 75 mg PO DAILY 12/26/19 12/26/19 History (NF)] hydrOXYzine pamoate [Vistaril] 50 mg PO BID 12/26/19 12/26/19 History Allergies Allergy/AdvReac Type Severity Reaction Status Date / Time No Known Allergies Allergy Verified 05/25/17 09:59 ROS: 12 point ROS negative, except as otherwise stated above. Temp Pulse Resp BP Pulse Ox 97.1 F 90 22 125/81 98 12/27/19 11:15 12/27/19 11:15 12/27/19 11:15 12/27/19 11:15 12/27/19 11:15 Laboratory Last Values WBC 5.5 10^3/uL (3.5-10.8) 12/26/19 13:33 RBC 3.96 10^6 /uL (3.70-4.87) 12/26/19 13:33 Hgb 9.8 g/dL (12.0-16.0) L 12/26/19 13:33 Hct 30 % (35-47) L 12/26/19 13:33 MCV 76 fL (80-97) L 12/26/19 13:33 MCH 25 pg (27-31) L 12/26/19 13:33 MCHC 32 g/dL (31-36) 12/26/19 13:33 RDW 18 % (10-15) H 12/26/19 13:33 Plt Count 213 10^3/uL (150-450) 12/26/19 13:33 MPV 7.6 fL (7.4-10.4) 12/26/19 13:33 ESR 45 mm/Hr (0-19) H 12/26/19 13:33 INR (Anticoag Therapy) 3.11 (0.82-1.09) H 12/26/19 13:33 Sodium 137 mmol/L (135-145) 12/26/19 13:33 Potassium 3.7 mmol/L (3.5-5.0) 12/26/19 13:33 Chloride 111 mmol/L (101-111) 12/26/19 13:33 Carbon Dioxide 19 mmol/L (22-32) L 12/26/19 13:33 Anion Gap 7 mmol/L (2-11) 12/26/19 13:33 BUN 14 mg/dL (6-24) 12/26/19 13:33 Creatinine 0.75 mg/dL (0.51-0.95) 12/26/19 13:33 Est GFR ( Amer) 108.4 (>60) 12/26/19 13:33 Est GFR (Non-Af Amer) 89.6 (>60) 12/26/19 13:33 BUN/Creatinine Ratio 18.7 (8-20) 12/26/19 13:33 Glucose 108 mg/dL (70-100) H 12/26/19 13:33 Calcium 8.6 mg/dL (8.6-10.3) 12/26/19 13:33 Total Bilirubin 0.30 mg/dL (0.2-1.0) 12/26/19 13:33 AST 21 U/L (13-39) 12/26/19 13:33 ALT 16 U/L (7-52) 12/26/19 13:33 Alkaline Phosphatase 95 U/L (34-104) 12/26/19 13:33 Troponin I 0.00 ng/mL (<0.03) 12/26/19 13:33 C-Reactive Protein 136.12 mg/L (<8.01) H 12/26/19 13:33 B-Natriuretic Peptide 105 pg/mL (<=100) H 12/26/19 13:33 Total Protein 6.9 g/dL (6.4-8.9) 12/26/19 13:33 Albumin 3.6 g/dL (3.2-5.2) 12/26/19 13:33 Globulin 3.3 g/dL (2-4) 12/26/19 13:33 Albumin/Globulin Ratio 1.1 (1-3) 12/26/19 13:33 Beta HCG, Quant < 0.60 mIU/mL 12/26/19 13:33 Urine Color Yellow 12/26/19 23:40 Urine Appearance Clear 12/26/19 23:40 Urine pH 6.0 (5-9) 12/26/19 23:40 Ur Specific [place] 1.017 (1.010-1.030) 12/26/19 23:40 Urine Protein Negative (Negative) 12/26/19 23:40 Urine Ketones Negative (Negative) 12/26/19 23:40 Urine Blood Negative (Negative) 12/26/19 23:40 Urine Nitrate Negative (Negative) 12/26/19 23:40 Urine Bilirubin Negative (Negative) 12/26/19 23:40 Urine Urobilinogen Negative (Negative) 12/26/19 23:40 Ur Leukocyte Esterase Negative (Negative) 12/26/19 23:40 Urine Glucose Negative (Negative) 12/26/19 23:40 Urine Opiates Screen None detected (None Detect) 12/26/19 23:40 Ur Barbiturates Screen None detected (None Detect) 12/26/19 23:40 Ur Phencyclidine Scrn None detected (None Detect) 12/26/19 23:40 Ur Amphetamines Screen None detected (None Detect) 12/26/19 23:40 U Benzodiazepines Scrn None detected (None Detect) 12/26/19 23:40 Urine Cocaine Screen None detected (None Detect) 12/26/19 23:40 U Cannabinoids Screen None detected (None Detect) 12/26/19 23:40 PEX General: Alert, in NAD. Skin: Approximately 3 x 2 cm area of induration and erythema of the left AC. HEENT: Oropharynx clear. Trachea midline. PERRLA. Heart: RRR, no MRG. Lungs: CTAB, no WRR. ABD: BS present. Soft, nontender and nondistended. Extremities: Slight edema in BL lower extremities. Distal pulses intact BL. Calves soft and nontender. MSK: Strength and ROM intact bilaterally. Neruo: Sensation intact bilaterally. Left arm ultrasound: Hypervascular edematous soft tissue with a small amount of free fluid, consistent with cellulitis given the clinical history. There is a 2.2 cm hypoechoic structure that does not appear to be a well defined fluid collections likely represents phlegmon versus early abscess. Assessment and plan: 34 yo F with cellulitis of left AC area. Recommend treatment with antibiotics at this time and watchful waiting. Plan discussed with Dr. Holland.
--- NOTE | 2019-12-27 13:18 | PN ---
Subjective Date of Service: 12/27/19 Interval History: Ms. Armijo is frustrated that her JOSE will not be done today. She denies cough , fever, pleuritic chest pain. She does report some KISER at times. She c/o mild L antecubital pain, but no pain elsewhere in the arm. She reports some LE edema, and LUE edema. She has no other complaints today. Objective Active Medications: Acetaminophen (Tylenol Tab*) 650 mg PO Q4H PRN PRN Reason: PAIN - MILD Last Admin: 12/27/19 08:57 Dose: 650 mg Amitriptyline HCl (Elavil Tab*) 100 mg PO BEDTIME [facility] Last Admin: 12/26/19 23:33 Dose: 100 mg Buprenorphine HCl (Subutex Tab*) 2 mg SL TID [facility] Last Admin: 12/27/19 08:57 Dose: 2 mg Docusate Sodium (Colace Cap*) 100 mg PO BID [facility] Last Admin: 12/27/19 11:41 Dose: 100 mg Hydroxyzine HCl (Atarax Tab*) 50 mg PO DAILY [facility] Last Admin: 12/27/19 11:40 Dose: 50 mg Hydroxyzine HCl (Atarax Tab*) 100 mg PO BEDTIME [facility] Last Admin: 12/26/19 23:34 Dose: 100 mg Sodium Chloride (Ns 0.9% 1000 Ml) 1,000 mls @ 75 mls/hr IV PER RATE [facility] Vancomycin HCl 1,250 mg/ (Sodium Chloride) 250 mls @ 166.667 mls/hr IVPB Q8H [facility] Last Admin: 12/27/19 12:50 Dose: 166.667 mls/hr Cefepime HCl 2 gm/ Sodium (Chloride) 50 mls @ 100 mls/hr IVPB Q8H [facility] Last Admin: 12/27/19 09:02 Dose: 100 mls/hr Magnesium Hydroxide (Milk Of Magnesia Liq*) 30 ml PO Q4H PRN PRN Reason: CONSTIPATION Pantoprazole Sodium (Protonix Tab*) 40 mg PO DAILY [facility] Last Admin: 12/27/19 11:40 Dose: 40 mg Pharmacy Consult (Vancomycin Per Pharmacy*) 1 note FOLLOW UP .VANC PER PHARMACY [facility]; Protocol Pharmacy Profile Note (Vancomycin Trough Check) 1 note FOLLOW UP 0530 ONE Stop: 12/28/19 05:31 Polyethylene Glycol/Electrolytes (Miralax (17 Gm Dose Jorge A)) 17 gm PO DAILY [facility] Last Admin: 12/27/19 11:41 Dose: 17 gm Propranolol HCl (Inderal La Cap*) 60 mg PO DAILY [facility] Last Admin: 12/27/19 11:41 Dose: 60 mg Topiramate (Topamax(*)) 100 mg PO BID [facility] Last Admin: 12/27/19 11:40 Dose: 100 mg Venlafaxine HCl (Effexor Xr Cap*) 75 mg PO DAILY [facility]; Protocol Last Admin: 12/27/19 11:41 Dose: 75 mg Vital Signs: Temp Pulse Resp BP Pulse Ox 97.1 F 90 22 125/81 98 12/27/19 11:15 12/27/19 11:15 12/27/19 11:15 12/27/19 11:15 12/27/19 11:15 Oxygen Devices in Use Now: None Appearance: Ms. Armijo is a young white woman who is sitting at edge of bed. She appears agitated, in no acute distress, breathing comfortably on RA. Ears/Nose/Mouth/Throat: Mucous Membranes Moist Neck: NL Appearance and Movements; NL JVP, Trachea Midline Respiratory: Symmetrical Chest Expansion and Respiratory Effort, Clear to Auscultation Cardiovascular: NL Sounds; No Murmurs; No JVD, RRR, - - trace b/l LE edema Abdominal: NL Sounds; No Tenderness; No Distention, No Hepatosplenomegaly Extremities: No Clubbing, Cyanosis Neurological: Alert and Oriented x 3 Result Diagrams: 12/27/19 17:01 12/27/19 17:01 Microbiology and Other Data: Microbiology 12/26/19 13:15 Aerobic Blood Culture - Preliminary Blood Venous Anaerobic Blood Culture - Preliminary 12/26/19 13:33 Aerobic Blood Culture - Preliminary Blood Venous Anaerobic Blood Culture - Preliminary Assess/Plan/Problems-Billing Assessment: Ms. Armijo is a 34yof with PMHx IVDA, h/o endocarditis with AVR, HCV who presented to the ER with fever, damon, pleuritic chest pain concerning for endocarditis. - Patient Problems (1) Fever Comment: -pt presents with reported Tmax 10.24, pleuritic CP, 3mo LE edema, KISER -h/o endocarditis with AVR -recent negative COVID-19 test; pending repeat testing -UA negative; CXR unremarkable -CRP, ESR elevated -suspect d/t endocarditis -BC GP cocci in all tubes; awaiting further classification -transition to ampicillin -plan for JOSE in a.m. -ID consulted (2) Bacteremia Comment: -with associated fever; h/o endocarditis -work up negative thus far -suspect endocarditis vs L AC abscess as source -plan for JOSE once COVID-19 result received (initial COVID-19 test negative) -transition to ampicillin -await further classification -ID consulted (3) Dyspnea Comment: -pt reports KISER -denies cough, although recently had fever, Tmax 102.4 -afebrile since arrival -had recent COVID-19 test (negative); repeat testing done 12/25 -pending JOSE once COVID-19 results (4) Cellulitis of antecubital fossa Comment: -LUE edema, L antecubital fossa firm without fluctuance, erythema -US shows cellulitis, phlegmon vs abscess -treating for cellulitis; continue cefepime, vanco -surgical consult to determine need for I&D (5) Anemia Comment: -microcytic anemia -stool for blood -iron studies, B12, folate (6) Rash Comment: -presented with b/l UE rash -appears improved -will continue to monitor (7) IV drug abuse Comment: -h/o IVDA, but denies recent use -UDS negative (8) DVT prophylaxis Comment: -on warfarin (9) Full code status Status and Disposition: Inpatient. Discharge when stable.
[2019-12-27] MEDS ORDERED: SUMAtriptan SQ* 6 MG/0.5 ML VIAL SUBCUT ONE (13:41)
[2019-12-27 17:14] LABS: ABS Eosinophils 0.1 10^3/ul (0-0.6); ABS Lymphocytes 1.4 10^3/ul (1.0-4.8); ABS Monocytes 0.4 10^3/ul (0-0.8); ABS Neutrophils 2.8 10^3/ul (1.5-7.7); Eosinophil % 2.3 %; Hematocrit 29 % (35-47); Hemoglobin 9.5 g/dL (12.0-16.0); Lymphocyte % 29.6 %; Mean Corpuscular HGB Conc 33 g/dL (31-36); Mean Corpuscular Hemoglobin 25 pg (27-31); Mean Corpuscular Volume 76 fL (80-97); Platelet Count 235 10^3/uL (150-450); Red Blood Count 3.83 10^6 /uL (3.70-4.87); Red Cell Distribution Width 18 % (10-15); White Blood Count 4.7 10^3/uL (3.5-10.8)
[2019-12-27 17:19] LABS: INR 2.24 (0.82-1.09)
[2019-12-27 17:25] LABS: BUN/Creatinine Ratio 19.8 (8-20); Blood Urea Nitrogen 16 mg/dL (6-24); CO2 Carbon Dioxide 19 mmol/L (22-32); Calcium 8.7 mg/dL (8.6-10.3); EGFR African American 99.1 (>60); EGFR Non-African American 81.9 (>60); Glucose 105 mg/dL (70-100); Potassium 4.3 mmol/L (3.5-5.0); Sodium 136 mmol/L (135-145)
[2019-12-27 17:32] LABS: Anion Gap 5 mmol/L (2-11); Chloride 112 mmol/L (101-111)
[2019-12-27 17:58] LABS: TSH (Thyroid Stimulating Horm) 3.61 mcIU/mL (0.34-5.60)
[2019-12-27 18:11] LABS: HIV 4th Generation Nonreactive (Nonreactive)
[2019-12-27] MEDS: NS 0.9% 1000 ML** 1,000 ML IV SCH (18:16)
[2019-12-27] MEDS: Ampicillin ADVAN(*) 2 GM in NS 0.9% 100 ML* 100 ML IVPB SCH ×2 (18:16→21:32)
[2019-12-27 18:20] LABS: % Iron Saturation 8 % (15-55); Iron 29 ug/dL (50-212); Total Iron Binding Capacity 353 mcg/dL (250-450); Transferrin 252 mg/dL (203-362)
[2019-12-27 18:46] LABS: Folate > 20.00 ng/mL (>3.99)
[2019-12-27] MEDS: Amitriptyline TAB* 100 MG PO SCH (21:33)
[2019-12-28] MEDS: Ampicillin ADVAN(*) 2 GM in NS 0.9% 100 ML* 100 ML IVPB SCH ×6 (02:13→21:24)
[2019-12-28] MEDS ORDERED: Vancomycin Trough Check NOTE FOLLOW UP ONE (05:30)
[2019-12-28] MEDS: Topiramate TAB(*) 100 MG PO SCH ×2 (08:48→21:26)
[2019-12-28] MEDS: Venlafaxine EXT RELEASE CAP* 75 MG PO SCH (08:48)
[2019-12-28] MEDS: Buprenorphine TAB* 2 MG TAB.SL SL SCH ×3 (08:48→21:26)
[2019-12-28] MEDS: Docusate CAP* 100 MG PO SCH ×2 (08:48→21:26)
[2019-12-28] MEDS: Pantoprazole TAB * 40 MG TAB PO SCH (08:49)
[2019-12-28] MEDS: Propranolol LA CAP* 60 MG PO SCH (08:49)
[2019-12-28] MEDS: Polyethylene Glycol 3350* 17 GM PACKET PO SCH (08:49)
[2019-12-28] MEDS: hydrOXYzine HCL TAB* 50 MG PO SCH ×2 (08:49→21:26)
[2019-12-28] MEDS: NS 0.9% 1000 ML** 1,000 ML IV SCH (08:55)
[2019-12-28] MEDS ORDERED: Midazolam* 1 MG/ML 5 ML VIAL (5 MG) ONE (09:00)
[2019-12-28] MEDS ORDERED: fentaNYL* 50 MCG/ML 2 ML VIAL (100 MCG VIAL) ONE (09:00)
[2019-12-28] MEDS ORDERED: Naloxone* 0.4 MG/ML 1 ML VIAL ONE (09:00)
[2019-12-28] MEDS ORDERED: Flumazenil* 0.1 MG/ML 5 ML MDV ONE (09:00)
[2019-12-28] MEDS ORDERED: Lidocaine 2% VISCOUS* 15 ML UDC ONE (09:01)
[2019-12-28 12:55] LABS: INR 1.66 (0.82-1.09)
--- NOTE | 2019-12-28 14:17 | PN ---
Progress Note - Progress Note Date of Service: 12/28/19 Note: Surgery Progress: S: Now on Ampicillin. Seen earlier ( ~11:00) just after completion of JOSE. States the Left antecubital area hurts, a bit more than before, but not a lot of pain. States there had been drainage at home at the onset, but not since hospitalization. O: Vital Signs - 8 hr 12/28/19 12/28/19 12/28/19 08:20 08:48 13:47 Temperature 97.9 F Pulse Rate 82 Respiratory 18 18 16 Rate Blood Pressure 122/72 (mmHg) O2 Sat by Pulse 100 Oximetry Gen: still a bit groggy after sedation, but answers appropriately Left UE: generally swollen, L>R, but patient states is chronic. Dull erythema over a 2 x 3 cm area, with a central pustule which is intact. Palpable induration; no sig fluctuance, nor expressible drainage. US report from 12/26 reviewed C&S blood culture: Aerobic Culture Bottle Final 12/28/19- 0839 ML Aerobic Bottle Gram Stain Gram Positive Cocci, resemb. Strep Organism 1 ENTEROCOCCUS FAECALIS 1. ENTEROCOCCUS FAECALIS M.I.C. RX Ampicillin <=2 S Penicillin 4 S Ciprofloxacin <=0.5 S Erythromycin >=8 R Gentamicin High Level R Levofloxacin 1 S Linezolid 2 S * Quinupristin/Dalfopristin 8 R * Streptomycin High Level S Tetracycline >=16 R Tigecycline <=0.12 S Vancomycin 1 S Imipenem-Deduced S * Ampicillin/Sulbactam-Deduced S * These antibiotics are not available in the [facility] Formulary Contact the Microbiology Department for any additional antibiotic reporting. Anaerobic Culture Bottle Final 12/28/19- 0839 ML A: cellulitis, possible evolving abscess Left antecubital fossa, superficial P: discussed with her the options of warm compresses, abx, and watchful waiting , expecting that this will drain spontaneously, vs. I&D. She is comfortable with the former plan. We will continue to follow daily.
--- NOTE | 2019-12-28 14:35 | TEE ---
*[facility]* [place] [address] Fax #: [phone] Transesophageal Echocardiogram Patient: Lanie Armijo : 1985 Study Date: 12/28/2019 Age: 34 Gender: F HR: 85 bpm Height: 62 in /157.5 cm BSA: 2.21 m^2 Weight: 232.5 lb /105.7 kg BMI: 42.6 kg/m^2 *Instrument Tester: * Katrin Bowman RD *Referring Physician: * Maliha YoungbloodReading Physician: * Xuan Chacon MD Indications: Bacteremia. History: IVDA. Zofia Galloway Labs, prior tests, procedures, and surgery: Valve surgery (March 2014). Aortic valve replacement. Conclusions Summary: - Procedure narrative: The study was technically difficult,as a result of poor patient compliance and shadowing artifact from prosthetic material. - Left ventricle: Systolic function is normal. The estimated ejection fraction is 50-55%, by visual assessment. - Right ventricle: Systolic function is normal. - Left atrium: Emptying velocity is normal in the left atrial appendage. - Atrial septum: A PFO is not demonstrated by color Doppler. - Mitral valve: There is no evidence of a vegetation. - Aortic valve: There is a mechanical prosthetic valve. Cannot exclude a vegetation, image 75 shows some ill defined strands, mobile, on the lateral portions of the 2 leaflets, aortic side of the valve. There is trace paravalvular regurgitation. - Tricuspid valve: There is no evidence of a vegetation. There is trace regurgitation. - Pulmonic valve: There is no regurgitation. - No prior echocardiogram avaiable to compare. Study data: Diagnostic Transesophageal Echocardiogram Consent: The risks and benefits of the procedure, including alternatives were discussed with the patient and/or their health care assisted sales representative and written informed consent was obtained. Procedure: Initial setup: The patient was brought to the laboratory in the fasting state.Intravenous access was obtained. Surface ECG leads, heart rate, heart rhythm, blood pressure measurements, pulse oximetric signals, and mainstream end-tidal CO2 tracings were monitored throughout the procedure. Sedation. Moderate sedation was administered by nursing staff. History and physical as well as labs were reviewed. An oral bite block was inserted for protection of oral dentition. The patient was placed in the left lateral decubitus position. Topical anesthesia was obtained using viscous lidocaine. A transesophageal probe was inserted by the attending acting instructor. Transesophageal echocardiography was performed, The study was technically difficult,as a result of poor patient compliance and shadowing artifact from prosthetic material. and all standard views were attempted within the limitations of patient tolerance and safety. Multiple 2D, color flow Doppler and spectral Doppler images were obtained. The transesophageal probe was removed. Location: Bedside. Patient status: Inpatient. Patient room number: 420-02. Study completion: The patient tolerated the procedure well. There were no complications. Administered medications: Midazolam, 15mg. Fentanyl, 100mcg. Findings Left ventricle: The cavity size is normal. Systolic function is normal. The estimated ejection fraction is 50-55%, by visual assessment. Right ventricle: The cavity size is normal. Systolic function is normal. Left atrium: The atrium is normal in size. Emptying velocity is normal. There is no evidence of a thrombus in the atrial cavity or appendage. Right atrium: The atrium is normal in size. Atrial septum: A PFO is not demonstrated by color Doppler. A Bubble Study was not performed today due to the loss of IV access. Mitral valve: The leaflets are normal thickness. There is no evidence of a vegetation. There is no evidence of stenosis. There is trace to mild regurgitation. Aortic valve: There is a mechanical prosthetic valve. Cannot exclude a vegetation, image 75 shows some ill defined strands, mobile, on the lateral portions of the 2 leaflets, aortic side of the valve. There is no evidence of stenosis. There is trace paravalvular regurgitation posteriorely. Tricuspid valve: There is no evidence of a vegetation. There is no evidence of stenosis. There is trace regurgitation. Pulmonic valve: The valve is structurally normal. There is no evidence of a vegetation. There is no regurgitation. Aorta: There is minimal atherosclerotic plaque visualized in the Descending Aorta. Aortic root: The aortic root is appears normal. Ascending aorta: The ascending aorta is appears normal. Pericardium: There is no significant pericardial effusion. Pulmonary arteries: The main pulmonary artery is normal-sized. Systolic pressure can not be accurately estimated. Systemic veins: Inferior vena cava: The vessel is normal in size. Superior vena cava: The vessel is appears normal. Pulmonary veins: Well visualized. The Pulmonary veins appear normal. Measurements Aortic valve Value Ref Aortic root Value Ref Viktoriya diam, S 2.2 cm 1.9 - 2.7 Root diam, S 3.2 cm ---- Mitral valve Value Ref Ascending aorta Value Ref Peak E 1.26 m/sec --------- AAo AP diam 2.8 cm ---- Decel time 160 ms --------- PHT 46 ms --------- Peak grad, D 6.3 mm Hg --------- MVA, PHT 4.7 cm^2 --------- Legend: (L) and (H) marino values outside specified reference range. Prepared and electronically signed by Xuan Chacon MD 12/28/2019 14:34
--- NOTE | 2019-12-28 15:29 | PN ---
Subjective Date of Service: 12/28/19 Interval History: Ms. Armijo states that she still feels unwell in general and continues to have KISER. She denies cough, fever, chills. She continues to have pain in the L AC area. She has no other complaints today. Objective Active Medications: Acetaminophen (Tylenol Tab*) 650 mg PO Q4H PRN PRN Reason: PAIN - MILD Last Admin: 12/27/19 08:57 Dose: 650 mg Amitriptyline HCl (Elavil Tab*) 100 mg PO BEDTIME [facility] Last Admin: 12/27/19 21:33 Dose: 100 mg Buprenorphine HCl (Subutex Tab*) 2 mg SL TID [facility] Last Admin: 12/28/19 13:47 Dose: 2 mg Docusate Sodium (Colace Cap*) 100 mg PO BID [facility] Last Admin: 12/28/19 08:48 Dose: 100 mg Hydroxyzine HCl (Atarax Tab*) 50 mg PO DAILY [facility] Last Admin: 12/28/19 08:49 Dose: 50 mg Hydroxyzine HCl (Atarax Tab*) 100 mg PO BEDTIME [facility] Last Admin: 12/27/19 21:33 Dose: 100 mg Sodium Chloride (Ns 0.9% 1000 Ml) 1,000 mls @ 75 mls/hr IV PER RATE [facility] Last Admin: 12/28/19 08:55 Dose: 75 mls/hr Ampicillin Sodium 2 gm/ Sodium (Chloride) 100 mls @ 200 mls/hr IVPB Q4H [facility] Last Admin: 12/28/19 13:00 Dose: Not Given Magnesium Hydroxide (Milk Of Magnesia Liq*) 30 ml PO Q4H PRN PRN Reason: CONSTIPATION Pantoprazole Sodium (Protonix Tab*) 40 mg PO DAILY [facility] Last Admin: 12/28/19 08:49 Dose: 40 mg Polyethylene Glycol/Electrolytes (Miralax (17 Gm Dose Jorge A)) 17 gm PO DAILY [facility] Last Admin: 12/28/19 08:49 Dose: Not Given Propranolol HCl (Inderal La Cap*) 60 mg PO DAILY [facility] Last Admin: 12/28/19 08:49 Dose: Not Given Topiramate (Topamax(*)) 100 mg PO BID [facility] Last Admin: 12/28/19 08:48 Dose: 100 mg Venlafaxine HCl (Effexor Xr Cap*) 75 mg PO DAILY [facility]; Protocol Last Admin: 12/28/19 08:48 Dose: 75 mg Vital Signs: Temp Pulse Resp BP Pulse Ox 97.9 F 80 16 120/70 98 12/28/19 08:20 12/28/19 11:00 12/28/19 13:47 12/28/19 11:00 12/28/19 11:00 Oxygen Devices in Use Now: None Appearance: Ms. Armijo is a young white female who is sitting up in bed; she appears to be in NAD and is breathing comfortably on RA Respiratory: Symmetrical Chest Expansion and Respiratory Effort, Clear to Auscultation Cardiovascular: NL Sounds; No Murmurs; No JVD, RRR Extremities: - - b/l LE trace edema; LUE with edema; L AC with erythema, edema, tenderness to palpation; area appears inflammed and appears close to eruption, although there is no drainage or opening Neurological: Alert and Oriented x 3 Result Diagrams: 12/27/19 17:01 12/27/19 17:01 Microbiology and Other Data: Microbiology 12/26/19 13:15 Aerobic Blood Culture - Preliminary Blood Venous Anaerobic Blood Culture - Preliminary 12/26/19 13:33 Aerobic Blood Culture - Preliminary Blood Venous Anaerobic Blood Culture - Preliminary Assess/Plan/Problems-Billing Assessment: Ms. Armijo is a 34yof with PMHx IVDA, h/o endocarditis with AVR, HCV who presented to the ER with fever, damon, pleuritic chest pain concerning for endocarditis. - Patient Problems (1) Fever Comment: -pt presents with reported Tmax 10.24, pleuritic CP, 3mo LE edema, KISER -h/o endocarditis with AVR -recent negative COVID-19 test; pending repeat testing -UA negative; CXR unremarkable -CRP, ESR elevated -JOSE with no valvular vegetation noted -BC with enterococcus in all bottles -continue ampicillin -endocarditis vs L AC abscess -ID consulted (2) Bacteremia Comment: -with associated fever; h/o endocarditis -work up negative thus far -suspect endocarditis vs L AC abscess as source -JOSE shows no vegetation -BC with enterococcus -continue ampicillin -ID consulted (3) Dyspnea Comment: -pt reports KISER -denies cough, although recently had fever, Tmax 102.4 -afebrile since arrival -had recent COVID-19 test (negative); repeat testing done 12/25 -pending COVID-19 results (4) Cellulitis of antecubital fossa Comment: -LUE edema, L antecubital fossa firm, erythematous, without fluctuance -US shows cellulitis, phlegmon vs abscess -treating for cellulitis; continue ampicillin -surgery consulted; recommend antibiotics and waiting (5) Anemia Comment: -microcytic anemia -stool for blood -low iron -B12, folate WNL -possibly reactive, due to infection, plus iron deficiency -will start PO iron (6) Rash Comment: -presented with b/l UE rash -appears improved -will continue to monitor (7) IV drug abuse Comment: -h/o IVDA, but denies recent use -UDS negative (8) DVT prophylaxis Comment: -on warfarin (9) Full code status Status and Disposition: Inpatient. Discharge when stable.
--- NOTE | 2019-12-28 20:02 | CONS ---
CONSULTATION REPORT: DATE OF CONSULT: 12/28/19 PRIMARY CARE PHYSICIAN: Dr. Jean Carlos Valentin. PROVIDER REQUESTING CONSULTATION: ROOPA Ro CONSULTING SERVICE: Infectious Diseases. PROVIDER: Katrin Ventura NP ATTENDING PHYSICIAN: Dr. Torin Rosenberg* (dictated by Katrin Ventura NP). REASON FOR CONSULTATION: Enterococcus bacteremia. IMPRESSION: 1. Enterococcus bacteremia. The patient is noted to have what appears to be a cellulitis and/or abscess in her left antecubital fossa. She denies any recent IV drug use, states she has been sober since 2013. She states that she recently had blood drawn in this area 1 week ago. She is afebrile, no leukocytosis, ESR elevated at 45 on admission, and CRP elevated at 136 on admission. Initial Blood cultures returned with 4/4 bottles positive for Enterococcus faecalis. She is currently on ampicillin. She denies any back pain or neck pain. She does report pain in the left antecubital fossa area. She denies any urinary symptoms such as urgency, frequency, or dysuria. Additionally, she denies any abdominal pain. She does have a history of aortic valve endocarditis, which she was treated for with a course of IV antibiotics and aortic valve replacement in 2013. She has a transesophageal echocardiogram pending for this morning. 2. Fevers. COVID-19 testing is still pending, but she was tested 4 days prior which was negative. She reports temperature max of a 102. She has a history of endocarditis with aortic valve replacement and positive blood cultures, Suspect endocarditis and cellulitis/abscess is the cause of her fever. 3. Left upper extremity cellulitis. The patient has what also appears to be a possible evolving abscess. She has had soft tissue ultrasound showing a hypervascular edematous soft tissue with small amount of free fluid consistent with cellulitis given clinical contact and 2.2 cm hypoechoic structure that does not appear to be well defined fluid collection, likely representing a phlegmon versus early abscess. She reports some discomfort in the arm. She has full range of motion of the arm, discomfort with palpation of the area. She has been seen by General Surgery who has recommended warm compresses and watch for waiting in the setting of IV antibiotics and holding off on I and D at this time. 4. History of hepatitis C. This was treated with Epclusa. 5. History of IV drug use. She reports being clean for quite some time. 6. Obesity. BMI of 43. RECOMMENDATIONS/PLAN: Recommend continuing ampicillin 2gm IV every 4 hours and starting Ceftriaxone 2 gm IV twice daily. Agree with the transesophageal echocardiogram that is scheduled for this morning. Recommend continuing to monitor the area in the left antecubital fossa for need for incision and drainage. Recommend obtaining followup blood cultures. HISTORY OF PRESENT ILLNESS: Ms. Armijo is a 34-year-old female with past medical history significant for aortic valve endocarditis, status post aortic valve replacement; hepatitis C, status post treatment; anxiety; depression; history of IV drug use, who presented to the emergency room with complaints of headache, fever, pain with deep breathing. She has noted shortness of breath and swelling in bilateral hands and feet for 3 months, but has not been able to find the cause of this. She denied any cough. She has been followed by her primary care provider and multiple cardiologists about the issue. The shortness of breath and edema are noted to be intermittent. She states waking up on the day of presentation with a temperature max of 102.4. She described as a maculopapular rash scattered on bilateral upper arms. The rash was not itchy. When she woke up the day of presentation, she had noticed "abscess" in her left inner elbow which she was able to express some purulent drainage from. She states it was secondary to a blood draw site 1 week prior at another facility. She reports recently being on a course of antibiotics for possible cellulitis of her left leg that has resolved. Due to all of her symptoms, she presented to the emergency room for further evaluation of her symptoms. While in the emergency room, she received cefepime, vancomycin, ceftriaxone, additionally 1 L of saline bolus. She was noted to be afebrile. No leukocytosis. CRP elevated at 136.12 and a ESR of 45. She was referred to the hospitalist service for admission. While in the hospital, she remained afebrile. HIV testing nonreactive. No leukocytosis. Tox screen was negative on admission. Blood cultures returned with 4/4 bottles positive for Enterococcus faecalis. She denies fevers, chills , nausea, vomiting, diarrhea, abdominal pain or urinary symptoms such as urgency , frequency, dysuria. Denies any recent travel. She reports pain in the left inner elbow where she reports an abscess secondary to a lab draw 1 week ago. She is pending transesophageal echocardiogram this morning. PAST MEDICAL HISTORY: 1. Aortic valve endocarditis. 2. Hepatitis C, status post treatment with Epclusa. 3. Anxiety. 4. Depression. 5. History of IV drug use. PAST SURGICAL HISTORY: Status post aortic valve replacement in 2013. MEDICATIONS: Home medications: 1. Subutex 2 mg sublingual 3 times daily. 2. Imitrex 6 mg subcutaneous once as needed for migraine. 3. Amitriptyline 100 mg by mouth daily at bedtime. 4. Omeprazole 40 mg by mouth daily. 5. Vistaril 50 mg by mouth twice daily. 6. Warfarin 6 mg by mouth on Thursday, Thursday, Thursday; 7 mg by mouth on Thursday, , Thursday. 7. Pantoprazole 60 mg by mouth daily. 8. Effexor 75 mg by mouth daily. 9. Topamax 100 mg by mouth twice daily. Hospital medications: 1. Acetaminophen 650 mg by mouth every 4 hours as needed for fever or pain. 2. Amitriptyline 100 mg by mouth daily at bedtime. 3. Ampicillin 2 g IV every 4 hours. 4. Subutex 2 mg sublingual 3 times daily. 5. Colace 100 mg by mouth twice daily. 6. Ferrous sulfate 325 mg by mouth daily. 7. Atarax 50 mg by mouth daily in the morning and 100 mg by mouth at bedtime. 8. Milk of magnesia 30 mL by mouth every 4 hours as needed for constipation. 9. Protonix 40 mg by mouth daily. 10. MiraLAX 17 g by mouth daily. 11. Propranolol 60 mg by mouth daily. 12. Sodium chloride 75 mL intravenously an hour. 13. Topamax 100 mg by mouth twice daily. 14. Effexor-XR 75 mg by mouth daily. ALLERGIES: No known drug allergies. FAMILY HISTORY: Denies family history of recurrent or resistant infections. No family history of heart disease or cancer. Mother with a history of diabetes. SOCIAL HISTORY: Denies alcohol or recreational drug use. She smoked one and half packs a day for 17 years. REVIEW OF SYSTEMS: I performed a 10-point review of systems and all the pertinent positives and negatives mentioned in the history of present illness. The remaining review of systems are negative. She denies any recent travel. PHYSICAL EXAMINATION: Vital Signs: Temperature 97.9, heart rate 82, respiratory rate 18, O2 sat 100% on room air, blood pressure 122/72. General Appearance: She is alert, appears to be in no acute distress, sitting up in bed. Head: Normocephalic, atraumatic. EENT: Extraocular movements are intact. No subconjunctival hemorrhage. Moist mucous membranes. Neck: Supple. No lymphadenopathy. Neurological: Alert and oriented. Cranial nerves II through XII are grossly intact. Moves all extremities. Cardiovascular: Regular rate and rhythm. No murmurs, rubs, or gallops heard. Respiratory: The lungs are clear to auscultation bilaterally. No accessory muscle use. Abdomen: Bowel sounds present. Abdomen is soft, obese, nontender , nondistended. Extremities: Mild bilateral lower extremity edema. Additionally, mild bilateral upper extremity edema. Musculoskeletal: No clubbing or cyanosis noted. Exhibits good strength in all extremities. No tenderness to palpation in the neck, back, or spine. Psychological: Calm and cooperative. Skin: No rashes or abnormalities seen other than an area of dull erythema approximately 2 x 3 cm with a central pustule. Over the left anterior cubital fossa, there is an area of palpable induration. No significant fluctuance or expressible drainage. DIAGNOSTIC STUDIES/LAB DATA: From 12/27/19, sodium 136, potassium 4.3, chloride 112, CO2 of 19, BUN 16, creatinine 0.81, glucose 105. White blood cell count 4.7, hemoglobin 9.5, hematocrit 29, platelet count 235. CRP 136.12, ESR of 45 on 12/26/19. Blood cultures 4/4 bottles positive for Enterococcus faecalis. Please see impression and recommendations outlined above. Recommendations have been discussed with ROOPA Ro. Thank you for asking us to see Ms. Armijo in consultation. The case has been discussed with my attending, Dr. Torin Rosenberg, who agrees with the plan of care. Reviewed by JUAN ALBERTO QUAN 01/03/20 1622 [id number]/[facility] #: [id number] MTDD
[2019-12-28] MEDS: Amitriptyline TAB* 100 MG PO SCH (21:26)
--- NOTE | 2019-12-28 21:40 | PN ---
Hospitalist Progress Note Date of Service: 12/28/19 Called by RN patient requesting warfarin, hx of mech valve will start hep gtt in case i and d performed inr 1.66
[2019-12-28 22:49] LABS: EGFR African American 108.4 (>60); EGFR Non-African American 89.6 (>60)
[2019-12-28] MEDS: Heparin VIAL(*) 5000 UNITS/ML VIAL (FIVE THOUSAND) IV SCH (22:50)
[2019-12-28] MEDS: Heparin DRIP 25,000 UNITS(*) 25,000 UNITS/500 ML BAG IV SCH (22:51)
[2019-12-29] MEDS: Ampicillin ADVAN(*) 2 GM in NS 0.9% 100 ML* 100 ML IVPB SCH ×6 (02:20→21:46)
--- NOTE | 2019-12-29 07:40 | PN ---
Subjective Date of Service: 12/29/19 Interval History: Ms. Armijo states that her KISER is improving and the L AC is feeling better. She reports that the L AC has opened since yesterday and is continuously draining. She denies CP, SOB, cough, fever, chills. She has no other complaints today. Objective Active Medications: Acetaminophen (Tylenol Tab*) 650 mg PO Q4H PRN PRN Reason: PAIN - MILD Last Admin: 12/27/19 08:57 Dose: 650 mg Amitriptyline HCl (Elavil Tab*) 100 mg PO BEDTIME [facility] Last Admin: 12/28/19 21:26 Dose: 100 mg Buprenorphine HCl (Subutex Tab*) 2 mg SL TID [facility] Last Admin: 12/28/19 21:26 Dose: 2 mg Docusate Sodium (Colace Cap*) 100 mg PO BID [facility] Last Admin: 12/28/19 21:26 Dose: 100 mg Ferrous Sulfate (Ferrous Sulfate Tab*) 325 mg PO DAILY [facility] Heparin Sodium (Porcine) (Heparin Vial(*)) 0 units IV .FOR HEPARIN BOLUSES [facility] Last Admin: 12/28/19 22:50 Dose: 4,000 units Hydroxyzine HCl (Atarax Tab*) 50 mg PO DAILY [facility] Last Admin: 12/28/19 08:49 Dose: 50 mg Hydroxyzine HCl (Atarax Tab*) 100 mg PO BEDTIME [facility] Last Admin: 12/28/19 21:26 Dose: 100 mg Ampicillin Sodium 2 gm/ Sodium (Chloride) 100 mls @ 200 mls/hr IVPB Q4H [facility] Last Admin: 12/29/19 06:05 Dose: 200 mls/hr Heparin Sodium/Dextrose (Heparin Drip 25,000 Units(*)) 25,000 units in 500 mls @ 0 mls/hr IV PER RATE [facility]; Protocol Last Admin: 12/28/19 22:51 Dose: 18 mls/hr Magnesium Hydroxide (Milk Of Magnesia Liq*) 30 ml PO Q4H PRN PRN Reason: CONSTIPATION Pantoprazole Sodium (Protonix Tab*) 40 mg PO DAILY [facility] Last Admin: 12/28/19 08:49 Dose: 40 mg Polyethylene Glycol/Electrolytes (Miralax (17 Gm Dose Jorge A)) 17 gm PO DAILY [facility] Last Admin: 12/28/19 08:49 Dose: Not Given Propranolol HCl (Inderal La Cap*) 60 mg PO DAILY [facility] Last Admin: 12/28/19 08:49 Dose: Not Given Topiramate (Topamax(*)) 100 mg PO BID [facility] Last Admin: 12/28/19 21:26 Dose: 100 mg Venlafaxine HCl (Effexor Xr Cap*) 75 mg PO DAILY [facility]; Protocol Last Admin: 12/28/19 08:48 Dose: 75 mg Vital Signs: Temp Pulse Resp BP Pulse Ox 97.2 F 79 18 119/70 98 12/29/19 11:47 12/29/19 11:47 12/29/19 13:59 12/29/19 11:47 12/29/19 11:47 Oxygen Devices in Use Now: None Appearance: Ms. Armijo is a young white female who is sitting up in bed; NAD; breathing comfortably on room air. Eyes: No Scleral Icterus, PERRLA Ears/Nose/Mouth/Throat: NL Teeth, Lips, Gums, Clear Oropharnyx, Mucous Membranes Moist Neck: NL Appearance and Movements; NL JVP, Trachea Midline Respiratory: Symmetrical Chest Expansion and Respiratory Effort, Clear to Auscultation Cardiovascular: RRR, - - RRR; mechanical heart sound Abdominal: NL Sounds; No Tenderness; No Distention, No Hepatosplenomegaly Extremities: No Clubbing, Cyanosis, - - LUE edema; L AC with erythematous, raised area that is open with purulent, bloody drainage Neurological: Alert and Oriented x 3 Result Diagrams: 12/29/19 11:55 12/29/19 11:55 Microbiology and Other Data: Microbiology 12/26/19 13:15 Aerobic Blood Culture - Preliminary Blood Venous Anaerobic Blood Culture - Preliminary 12/26/19 13:33 Aerobic Blood Culture - Preliminary Blood Venous Anaerobic Blood Culture - Preliminary Assess/Plan/Problems-Billing Assessment: Ms. Armijo is a 34yof with PMHx IVDA, h/o endocarditis with AVR, HCV who presented to the ER with fever, damon, pleuritic chest pain concerning for endocarditis. - Patient Problems (1) Fever Comment: -pt presents with reported Tmax 10.24, pleuritic CP, 3mo LE edema, KISER -h/o endocarditis with AVR -negative COVID-19 -UA negative; CXR unremarkable -CRP, ESR elevated -JOSE with possible vegetation on prosthetic AV -BC with enterococcus in all bottles -continue ampicillin -endocarditis vs L AC abscess -ID consulted (2) Bacteremia Comment: -with associated fever; h/o endocarditis -work up negative thus far -suspect endocarditis vs L AC abscess as source -JOSE shows possible mechanical AV vegetation -BC with enterococcus -continue ampicillin -ID consulted (3) Cellulitis of antecubital fossa Comment: -LUE edema, L antecubital fossa firm, erythematous, without fluctuance -US shows cellulitis, phlegmon vs abscess -treating for cellulitis; continue ampicillin -surgery consulted; recommend antibiotics and waiting -AC now open- culture obtained, pending (4) Dyspnea Comment: -pt reports KISER, improving -denies cough, although recently had fever, Tmax 102.4 -afebrile since arrival -negative COVID-19 (5) Anemia Comment: -microcytic anemia -stool for blood -low iron -B12, folate WNL -possibly reactive, due to infection, plus iron deficiency -continue PO iron and monitoring (6) S/P AVR Comment: -mechanical valve -on gtt heparin due to subtherapeutic INR -continue coumadin, daily INR -INR goal 2.5-3.5 (7) IV drug abuse Comment: -h/o IVDA, but denies recent use -UDS negative (8) DVT prophylaxis Comment: -on warfarin for mechanical valve (9) Full code status Status and Disposition: Inpatient. Discharge when stable.
[2019-12-29] MEDS: Polyethylene Glycol 3350* 17 GM PACKET PO SCH ×2 (09:44→20:38)
[2019-12-29] MEDS: Venlafaxine EXT RELEASE CAP* 75 MG PO SCH (09:44)
[2019-12-29] MEDS: Acetaminophen TAB* 325 MG PO PRN (09:44)
[2019-12-29] MEDS: hydrOXYzine HCL TAB* 50 MG PO SCH ×2 (09:44→20:31)
[2019-12-29] MEDS: Docusate CAP* 100 MG PO SCH ×2 (09:44→20:30)
[2019-12-29] MEDS: Pantoprazole TAB * 40 MG TAB PO SCH (09:44)
[2019-12-29] MEDS: Ferrous Sulfate TAB* 325 MG PO SCH ×2 (09:44→10:03)
[2019-12-29] MEDS: Buprenorphine TAB* 2 MG TAB.SL SL SCH ×3 (09:44→20:30)
[2019-12-29] MEDS: Propranolol LA CAP* 60 MG PO SCH (09:45)
[2019-12-29] MEDS: Topiramate TAB(*) 100 MG PO SCH ×2 (09:45→20:30)
--- NOTE | 2019-12-29 11:09 | PN ---
Progress Note - Progress Note Date of Service: 12/29/19 Note: Surgery progress note S: Reports her left AC infection discharged some pus spontaneously. Still mildly painful. Has been on ampicillin. O: Temp Pulse Resp BP Pulse Ox 97.9 F 69 18 125/81 97 12/29/19 07:20 12/29/19 07:20 12/29/19 09:44 12/29/19 07:20 12/29/19 07:20 Intake and Output Last 24 Hours 12/27/19 12/28/19 12/29/19 12/30/19 06:59 06:59 06:59 06:59 Intake Total 920 3890 3082 Output Total 600 700 500 Balance 320 3190 2582 Weight 235 lb 3.2 oz Intake: IV Fluids 440 2800 1282 ABX - AMPICILLIN 100 NS (0.9%) 440 2475 1182 Vanco 265 cefepime 60 IVPB 100 ABX - AMPICILLIN 100 Oral 780 880 5777 Output: Urine 600 700 500 Other: Estimated Void Medium Medium # Bowel Movements 0 # Voids 3 PEX General: Alert, in NAD. Skin: Approximately 3 x 2 cm area of induration and erythema of the left AC. No fluctuance appreciated. HEENT: Oropharynx clear. Trachea midline. PERRLA. Heart: RRR, no MRG. Lungs: CTAB, no WRR. ABD: BS present. Soft, nontender and nondistended. Extremities: Slight edema in BL lower extremities. Distal pulses intact BL. Calves soft and nontender. MSK: Strength and ROM intact bilaterally. Neruo: Sensation intact bilaterally. Assessment and plan: 34 yo F with cellulitis of left AC. Continue ABX. Recommend warm compresses and watchful waiting for the time being.
[2019-12-29 12:15] LABS: ABS Eosinophils 0.2 10^3/ul (0-0.6); ABS Lymphocytes 1.7 10^3/ul (1.0-4.8); ABS Monocytes 0.3 10^3/ul (0-0.8); ABS Neutrophils 2.8 10^3/ul (1.5-7.7); Eosinophil % 3.1 %; Hematocrit 29 % (35-47); Hemoglobin 9.7 g/dL (12.0-16.0); Lymphocyte % 34.9 %; Mean Corpuscular HGB Conc 33 g/dL (31-36); Mean Corpuscular Hemoglobin 25 pg (27-31); Mean Corpuscular Volume 76 fL (80-97); Mean Platelet Volume 6.8 fL (7.4-10.4); Nucleated Red Blood Cells % 0.1; Platelet Count 296 10^3/uL (150-450); Red Blood Count 3.84 10^6 /uL (3.70-4.87); Red Cell Distribution Width 18 % (10-15)
[2019-12-29 12:25] LABS: C Reactive Protein 38.97 mg/L (<8.01); Calcium 8.7 mg/dL (8.6-10.3); EGFR African American 108.4 (>60); EGFR Non-African American 89.6 (>60); Magnesium 1.9 mg/dL (1.9-2.7); Potassium 3.7 mmol/L (3.5-5.0)
[2019-12-29 12:33] LABS: INR 1.37 (0.82-1.09)
[2019-12-29 13:10] LABS: Activated Partial Thrombo Time 161.1 seconds (26.0-38.0)
[2019-12-29] MEDS: Heparin VIAL(*) 5000 UNITS/ML VIAL (FIVE THOUSAND) IV SCH ×2 (15:29→22:26)
[2019-12-29] MEDS ORDERED: Nicotine PATCH 14 MG/24 HR* PATCH ONE (16:01)
[2019-12-29] MEDS: Nicotine PATCH 14 MG/24 HR* PATCH TRANSDERM SCH (16:03)
[2019-12-29] MEDS ORDERED: Warfarin TAB(*) 4 MG PO SCH (17:00)
[2019-12-29] MEDS ORDERED: Warfarin TAB(*) 3 MG PO SCH (17:00)
[2019-12-29] MEDS: cefTRIAXone(*) 2 GM in NS 0.9% 100 ML* 100 ML IVPB SCH (20:27)
[2019-12-29] MEDS: Amitriptyline TAB* 100 MG PO SCH (20:30)
[2019-12-29] MEDS ORDERED: Nicotine Patch Removal NOTE FOLLOW UP SCH (21:00)
[2019-12-30] MEDS: Ampicillin ADVAN(*) 2 GM in NS 0.9% 100 ML* 100 ML IVPB SCH ×5 (01:56→17:31)
[2019-12-30] MEDS: Heparin DRIP 25,000 UNITS(*) 25,000 UNITS/500 ML BAG IV SCH (02:45)
[2019-12-30 05:17] LABS: ABS Basophils 0.1 10^3/ul (0-0.2); ABS Eosinophils 0.3 10^3/ul (0-0.6); ABS Lymphocytes 2.3 10^3/ul (1.0-4.8); ABS Monocytes 0.4 10^3/ul (0-0.8); ABS Neutrophils 3.5 10^3/ul (1.5-7.7); Eosinophil % 4.1 %; Hematocrit 30 % (35-47); Hemoglobin 9.6 g/dL (12.0-16.0); Lymphocyte % 35.4 %; Mean Corpuscular HGB Conc 32 g/dL (31-36); Mean Corpuscular Hemoglobin 25 pg (27-31); Mean Corpuscular Volume 76 fL (80-97); Mean Platelet Volume 6.7 fL (7.4-10.4); Nucleated Red Blood Cells % 0.1; Platelet Count 317 10^3/uL (150-450); Red Blood Count 3.88 10^6 /uL (3.70-4.87); Red Cell Distribution Width 18 % (10-15); White Blood Count 6.6 10^3/uL (3.5-10.8)
[2019-12-30 05:27] LABS: Activated Partial Thrombo Time 57.2 seconds (26.0-38.0); INR 1.23 (0.82-1.09)
[2019-12-30 05:28] LABS: EGFR African American 108.4 (>60); EGFR Non-African American 89.6 (>60)
[2019-12-30] MEDS: cefTRIAXone(*) 2 GM in NS 0.9% 100 ML* 100 ML IVPB SCH (08:58)
[2019-12-30] MEDS ORDERED: Nicotine PATCH 14 MG/24 HR* PATCH TRANSDERM SCH (09:00)
[2019-12-30] MEDS: Nicotine PATCH 14 MG/24 HR* PATCH TRANSDERM SCH (09:04)
[2019-12-30] MEDS: Polyethylene Glycol 3350* 17 GM PACKET PO SCH (09:04)
[2019-12-30] MEDS: Propranolol LA CAP* 60 MG PO SCH (09:04)
[2019-12-30] MEDS: Venlafaxine EXT RELEASE CAP* 75 MG PO SCH (09:05)
[2019-12-30] MEDS: Docusate CAP* 100 MG PO SCH (09:05)
[2019-12-30] MEDS: Ferrous Sulfate TAB* 325 MG PO SCH (09:05)
[2019-12-30] MEDS: Topiramate TAB(*) 100 MG PO SCH (09:05)
[2019-12-30] MEDS: hydrOXYzine HCL TAB* 50 MG PO SCH (09:06)
[2019-12-30] MEDS: Pantoprazole TAB * 40 MG TAB PO SCH (09:06)
[2019-12-30] MEDS: Buprenorphine TAB* 2 MG TAB.SL SL SCH ×2 (09:06→14:12)
--- NOTE | 2019-12-30 11:25 | PN ---
Subjective Date of Service: 12/30/19 Interval History: Ms. Armijo Objective Active Medications: Acetaminophen (Tylenol Tab*) 650 mg PO Q4H PRN PRN Reason: PAIN - MILD Last Admin: 12/29/19 09:44 Dose: 650 mg Amitriptyline HCl (Elavil Tab*) 100 mg PO BEDTIME [facility] Last Admin: 12/29/19 20:30 Dose: 100 mg Buprenorphine HCl (Subutex Tab*) 2 mg SL TID [facility] Last Admin: 12/30/19 09:06 Dose: 2 mg Docusate Sodium (Colace Cap*) 100 mg PO BID [facility] Last Admin: 12/30/19 09:05 Dose: 100 mg Ferrous Sulfate (Ferrous Sulfate Tab*) 325 mg PO DAILY [facility] Last Admin: 12/30/19 09:05 Dose: 325 mg Heparin Sodium (Porcine) (Heparin Vial(*)) 0 units IV .FOR HEPARIN BOLUSES [facility] Last Admin: 12/29/19 22:26 Dose: 2,000 units Heparin Sodium (Porcine) (Heparin Flush Picc/Ml/Cvc(*)) 1 - 3 ml FLUSH Q12HR [facility]; Protocol Last Admin: 12/30/19 09:06 Dose: Not Given Hydroxyzine HCl (Atarax Tab*) 50 mg PO DAILY [facility] Last Admin: 12/30/19 09:06 Dose: 50 mg Hydroxyzine HCl (Atarax Tab*) 100 mg PO BEDTIME [facility] Last Admin: 12/29/19 20:31 Dose: 100 mg Ampicillin Sodium 2 gm/ Sodium (Chloride) 100 mls @ 200 mls/hr IVPB Q4H [facility] Last Admin: 12/30/19 10:21 Dose: 200 mls/hr Heparin Sodium/Dextrose (Heparin Drip 25,000 Units(*)) 25,000 units in 500 mls @ 0 mls/hr IV PER RATE [facility]; Protocol Last Admin: 12/30/19 02:45 Dose: 24 mls/hr Ceftriaxone Sodium 2 gm/ (Sodium Chloride) 100 mls @ 200 mls/hr IVPB Q12H [facility] Last Admin: 12/30/19 08:58 Dose: 200 mls/hr Magnesium Hydroxide (Milk Of Magnesia Liq*) 30 ml PO Q4H PRN PRN Reason: CONSTIPATION Nicotine (Nicotine Patch 14 Mg/24 Hr*) 1 patch TRANSDERM DAILY [facility] Last Admin: 12/30/19 09:04 Dose: 1 patch Pantoprazole Sodium (Protonix Tab*) 40 mg PO DAILY [facility] Last Admin: 12/30/19 09:06 Dose: 40 mg Pharmacy Profile Note (Nicotine Patch Removal Note*) 1 note FOLLOW UP 2100 [facility] Last Admin: 12/29/19 20:33 Dose: 1 note Polyethylene Glycol/Electrolytes (Miralax (17 Gm Dose Jorge A)) 17 gm PO DAILY [facility] Last Admin: 12/30/19 09:04 Dose: 17 gm Propranolol HCl (Inderal La Cap*) 60 mg PO DAILY [facility] Last Admin: 12/30/19 09:04 Dose: 60 mg Topiramate (Topamax(*)) 100 mg PO BID [facility] Last Admin: 12/30/19 09:05 Dose: 100 mg Venlafaxine HCl (Effexor Xr Cap*) 75 mg PO DAILY [facility]; Protocol Last Admin: 12/30/19 09:05 Dose: 75 mg Warfarin Sodium (Coumadin Tab(*)) 4 mg PO TuThSa@1700 [facility]; Protocol Last Admin: 12/29/19 16:33 Dose: 4 mg Warfarin Sodium (Coumadin Tab(*)) 6 mg PO MoWeFr@1700 [facility]; Protocol Warfarin Sodium (Coumadin Tab(*)) 3 mg PO TuThSa@1700 [facility] Last Admin: 12/29/19 16:33 Dose: 3 mg Vital Signs - 8 hr 12/30/19 12/30/19 12/30/19 07:43 08:00 09:06 Temperature 97.6 F Pulse Rate 69 Respiratory 18 18 18 Rate Blood Pressure 124/59 (mmHg) O2 Sat by Pulse 98 Oximetry Oxygen Devices in Use Now: None Result Diagrams: 12/30/19 04:45 12/30/19 04:45 Microbiology and Other Data: Microbiology 12/26/19 13:15 Aerobic Blood Culture - Preliminary Blood Venous Anaerobic Blood Culture - Preliminary 12/26/19 13:33 Aerobic Blood Culture - Preliminary Blood Venous Anaerobic Blood Culture - Preliminary Assess/Plan/Problems-Billing Assessment: Ms. Armijo is a 34yof with PMHx IVDA, h/o endocarditis with AVR, HCV who presented to the ER with fever, damon, pleuritic chest pain concerning for endocarditis. - Patient Problems (1) Fever Comment: -pt presents with reported Tmax 10.24, pleuritic CP, 3mo LE edema, KISER -h/o endocarditis with AVR -negative COVID-19 -UA negative; CXR unremarkable -CRP, ESR elevated -JOSE with possible vegetation on prosthetic AV -BC with enterococcus in all bottles -continue ampicillin -endocarditis vs L AC abscess -ID consulted (2) Bacteremia Comment: -with associated fever; h/o endocarditis -work up negative thus far -suspect endocarditis vs L AC abscess as source -JOSE shows possible mechanical AV vegetation -BC with enterococcus -continue ampicillin -ID consulted (3) Cellulitis of antecubital fossa Comment: -LUE edema, L antecubital fossa firm, erythematous, without fluctuance -US shows cellulitis, phlegmon vs abscess -treating for cellulitis; continue ampicillin -surgery consulted; recommend antibiotics and waiting -AC now open- culture obtained, pending (4) Dyspnea Comment: -pt reports KISER, improving -denies cough, although recently had fever, Tmax 102.4 -afebrile since arrival -negative COVID-19 (5) Anemia Comment: -microcytic anemia -stool for blood -low iron -B12, folate WNL -possibly reactive, due to infection, plus iron deficiency -continue PO iron and monitoring (6) S/P AVR Comment: -mechanical valve -on gtt heparin due to subtherapeutic INR -continue coumadin, daily INR -INR goal 2.5-3.5 (7) IV drug abuse Comment: -h/o IVDA, but denies recent use -UDS negative (8) DVT prophylaxis Comment: -on warfarin for mechanical valve (9) Full code status Status and Disposition: Inpatient. Discharge when stable.
--- NOTE | 2019-12-30 12:58 | PN ---
Progress Note - Progress Note Date of Service: 12/30/19 SOAP: Subjective: CC: Enterococcous bacteremia. HPI: Ms. Armijo is a 34 yo female with PMH significant for AV endocarditis, s/p AVR, hepatitis C s/p treatment, anxiety, depression, hx IV drug use, who presented to the emergency room with complaints of headache, fever, and pain with deep breathing. She was admitted for COVID-19 rule out and found to have bacteremia. COVID-19 undetected. Denies fever, chills, nausea, vomiting, or diarrhea. She continue to have some discomfort in the left AC fossa at the site of the abscess. She states that she has not been using warm compresses to the area. Over the past day has had some "spontaneous" drainage" from the area. Objective: Vital Signs - 8 hr 12/30/19 12/30/19 12/30/19 07:43 08:00 09:06 Temperature 97.6 F Pulse Rate 69 Respiratory 18 18 18 Rate Blood Pressure 124/59 (mmHg) O2 Sat by Pulse 98 Oximetry 12/30/19 12/30/19 10:52 11:56 Temperature 97.5 F Pulse Rate 82 Respiratory 16 18 Rate Blood Pressure 138/78 (mmHg) O2 Sat by Pulse 100 Oximetry Physical Exam: General: NAD, sitting up in bed Neurolgical: Alert and Oriented HEENT: Moist MM Cardiovascular: Heart rate regular Respiratory: Lung sound clear Abdominal: Bowel sounds present; ABD soft, non tender and obese MSK: FELIPE, no tenderness to the back. Full ROM of the left arm, no edema in the left elbow Skin: No rash. Area of erythema and induration to the left AC fossa Laboratory Results - last 24 hr 12/27/19 12/29/19 12/29/19 17:01 11:55 14:15 APTT 161.1 H* 47.9 H B. burgdorferi IgM (IB) Negative Lyme IgG Bands Present p66,p58,p41 Lyme IgG Ab (Immblot) Negative Lyme IgM Ab (Immblot) None Lyme Disease Interpret See comment 12/29/19 12/30/19 12/30/19 21:45 04:45 04:45 WBC 6.6 RBC 3.88 Hgb 9.6 L Hct 30 L MCV 76 L MCH 25 L MCHC 32 RDW 18 H Plt Count 317 MPV 6.7 L Neut % (Auto) 52.9 Lymph % (Auto) 35.4 [place] % (Auto) 6.8 Eos % (Auto) 4.1 Baso % (Auto) 0.8 Absolute Neuts (auto) 3.5 Absolute Lymphs (auto) 2.3 Absolute Monos (auto) 0.4 Absolute Eos (auto) 0.3 Absolute Basos (auto) 0.1 Absolute Nucleated RBC 0.0 Nucleated RBC % 0.1 APTT 50.5 H BUN 13 Creatinine 0.75 Est GFR ( Amer) 108.4 Est GFR (Non-Af Amer) 89.6 Microbiology 12/28/19 18:00 Gram Stain - Final Arm Left Wound Culture - Preliminary No Growth Day 1 12/29/19 12:00 Stool Occult Blood (OLAMIDE) - Final Stool 12/26/19 13:15 Aerobic Blood Culture - Final Blood Venous Enterococcus Faecalis Anaerobic Blood Culture - Final Enterococcus Faecalis 12/26/19 13:33 Aerobic Blood Culture - Final Blood Venous Enterococcus Faecalis Anaerobic Blood Culture - Final Enterococcus Faecalis Assessment: 1. Enterococcus bacteremia. Insetting of left AC fossa cellulitis and abscess. She denies any recent IV drug use. She states that she recently had blood drawn in this area 1 week ago. Blood cultures returned with 4/4 bottles positive for Enterococcus faecalis. Denies any back pain or neck pain, urinary symptoms such as urgency, frequency, or dysuria, or ABD pain. Hx of aortic valve endocarditis, which she was treated for with a course of IV antibiotics and AVR. JOSE with - "MV no vegetation; AV mechanical prosthetic valve, cannot exclude a vegetation, some ill defined strands, mobile, on the lateral portions of the 2 leaflets, aortic side of the valve, and trace paravalvular regurgitation; TV no vegetation and trace regurgitation, PV no regurgitation. Afebrile and no leukocytosis. Elevated CRP of 136. 2. Left upper extremity cellulitis and abscess. US showing a "hypervascular edematous soft tissue with small amount of free fluid consistent with cellulitis , and likely representing a phlegmon versus early abscess. She reports some discomfort in the arm, improving She has full range of motion of the arm, some discomfort with palpation of the area. 3. Fevers. COVID-19 - undetected. Resolves, suspect secondary to cellulitis and bacteremia. 4. History of hepatitis C. Treated with Epclusa. 5. History of IV drug use. 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 6. Obesity. BMI of 43. Plan: Continue Ampicillin and ceftriaxone. Repeat blood cultures pending. She will need to have a 6 week course of IV ABX in the setting of possible endocarditis. Repeat JOSE next week to re-eval for vegetation and valve function. Continue warm compresses to the left AC fossa to assist with drainage. 25 minutes floor time: > 50 % spent with the patient discussing repeat JOSE next week and prolonged course of IV ABX.
--- NOTE | 2019-12-30 15:04 | PN ---
Progress Note - Progress Note Date of Service: 12/30/19 Note: S: Had a significant amount of drainage from the Left antecubital fossa area in the last 24-36 hr; states that the arm feels better, though still "hard". Has been applying warm compresses. O: Vital Signs - 8 hr 12/30/19 12/30/19 12/30/19 07:43 08:00 09:06 Temperature 97.6 F Pulse Rate 69 Respiratory 18 18 18 Rate Blood Pressure 124/59 (mmHg) O2 Sat by Pulse 98 Oximetry 12/30/19 12/30/19 12/30/19 10:52 11:56 14:12 Temperature 97.5 F Pulse Rate 82 Respiratory 16 18 18 Rate Blood Pressure 138/78 (mmHg) O2 Sat by Pulse 100 Oximetry LUE: no sig erythema; there is a small amount of dried drainage on the dressing (since yesterday). There is no expressible drainage initially, but using a sterile q-tip and a forceps, a small amount of overlying skin was unroofed. I was able to express a small amount of serosang drainage, which patient tolerated well. C&S: RUN DATE: 12/30/19 [facility] LAB LIVE PAGE 1 _ SOURCE: ARM LEFT SPDESC: ORDERED: Culture & Stain Procedure Result Reported Site Wound/Misc Gram Stain Final 12/28/19- 2058 ML 4+ Neutrophils 4+ Nucleated Cells 1+ Gram Positive Cocci 2+ Gram Positive Bacilli Wound/Misc Culture Preliminary 12/29/19- 915 ML No Growth Day 1 A/P: Left antecubital fossa abscess, superficial, spontaneously drained. Would continue local wound care (warm compresses, topical abx ointment, dsg) over the next couple of days, at which time I would expect drainage to subside. Abx per medicine/ID. No further surgical intervention req'd. Please recall as needed.
[2019-12-30 16:18] VITALS: BP 126/66
[2019-12-30] MEDS ORDERED: Warfarin TAB(*) 6 MG PO SCH (17:00)
[2019-12-30] MEDS ORDERED: Enoxaparin(*) 100 MG/ML SYR SUBCUT SCH (19:00)
[2019-12-30] MEDS ORDERED: Neomycin/Polym/Bacit TOP OINT* 15 GM TOPICAL SCH (21:00)
--- NOTE | 2019-12-30 21:05 | DS ---
CC: Dr. Valentin; Dr. Austin* DISCHARGE SUMMARY: DATE OF ADMISSION: 12/26/19 DATE OF TRANSFER TO [facility]: 12/30/19 PRIMARY CARE PROVIDER: Dr. Valentin. ATTENDING PHYSICIAN: Dr. Anusha Austin* (dictated by ROOPA Ro). PRIMARY DIAGNOSES: 1. Endocarditis. 2. Enterococcal bacteremia. 3. Left antecubital cellulitis. 4. Dyspnea. 5. Anemia, iron deficiency, reactive. 6. Subtherapeutic INR. SECONDARY DIAGNOSES: 1. History of endocarditis with aortic valve replacement. 2. History of intravenous drug use. 3. History of hepatitis C, treated with Epclusa. 4. Depression, anxiety. STUDIES WHILE IN THE HOSPITAL: 1. Chest x-ray, impression: No acute cardiac pulmonary process by radiograph status post AVR. 2. Ultrasound, left upper extremity, impression: Hypovascular edematous soft tissue with small amount of free fluid. Consistent with cellulitis given the clinical history. There is a 2.2 cm hypoechoic structure that does not appear to be a well-defined fluid collection likely represents phlegmon versus early abscess. 3. Transesophageal echocardiogram study significantly difficult as poor patient compliance and shadowing artifact from prosthetic material. LV systolic function normal. Estimated EF 50% to 55% by visual assessment. RV systolic function normal. LA emptying velocity normal in LA appendage. PFO no demonstrated. No evidence of MV vegetation, mechanical prosthetic AV cannot exclude vegetation, with ill-defined strands, mobile, on the lateral portions of 2 leaflets, aortic side of valve. Trace paravalvular regurgitation. No evidence of tricuspid vegetation. No evidence of VT. HISTORY OF PRESENT ILLNESS/HOSPITAL COURSE: Ms. Armijo is a 34-year-old female with a past medical history of previous endocarditis with AVR, history of IV drug use, who presented to the ER with complaints of fever, dyspnea, headache, left antecubital pain and swelling. The patient was admitted to the hospital. The patient had a reported T-max of 102.4. She was tested for COVID-19, which was negative x2. While in the hospital, the patient was found to have bacteremia with Enterococcus in all bottles. Suspected source is endocarditis and therefore a transesophageal echocardiogram was obtained, which shows possible AV vegetation. The patient is currently being treated with IV antibiotics, ceftriaxone and ampicillin. Throughout her stay, she has had no leukocytosis and has been afebrile since arrival. She reports that her dyspnea is improving. Repeat blood cultures were unremarkable with no growth to date. Plan is for repeat transesophageal echocardiogram next week. In the meantime, the patient will be continued on her IV antibiotics. The patient presented with left antecubital fossa cellulitis. An ultrasound was obtained, which showed cellulitis and phlegmon versus abscess. Surgery was consulted and recommended watchful waiting. The AC area opened on its own and is currently draining fluids. The area has improved in appearance and will continue to be monitored. Surgery continues to follow along. The patient presented with a microcytic anemia. Iron studies were obtained and it showed low iron only. It is suspected that the patient's anemia is reactive plus iron deficiency. She has been started on p.o. iron. A stool for blood has been obtained and is negative. Ms. Armijo will be discharged to [facility] swing bed status and is stable for transition to that status. PHYSICAL EXAMINATION: General: Ms. Armijo is a well-developed, well-nourished , obese, young white woman, who is sitting up in bed. She appears to be in no acute distress. She is breathing comfortably on room air. HEENT: PERRL. EOMI. Sclerae is nonicteric. Hearing is grossly intact. Oral mucous membranes are moist. There are no lesions. Pharynx is clear. Tongue is at midline. Cardiovascular: There is a mechanical sound to the heart. She has regular rate and rhythm. S1, S2 are present. No murmurs. No rubs, clicks, or gallops. There is no JVD. There is some left upper extremity edema due to cellulitis. No other peripheral edema. Pulmonary: Symmetrical chest expansion with no use of accessory muscles. Clear to auscultation bilaterally without rhonchi, wheeze, or rales. Abdomen: Bowel sounds in all quadrants. Soft and nontender to palpation. Musculoskeletal: Full range of motion without pain or deformities. Neuro: The patient is awake. She is alert and oriented x3. Cranial nerves II through XII are grossly intact. She is able to move all of her extremities with a motor strength of 5/5 in all upper and lower extremities. PLAN BY PROBLEM: 1. Bacteremia with reported associated fever that has since resolved. The patient presents with bacteremia enterococcus. Infectious Disease is following. She has been started on ampicillin. Ceftriaxone was added on . She will continue these medications for a total of 6 weeks. She had a transesophageal echocardiogram, which shows mechanical AV vegetation. Source of infection is left AC abscess versus endocarditis. Repeat transesophageal echocardiogram next week. Repeat blood cultures are negative. 2. Endocarditis. See above. The patient has history of aortic valve replacement due to endocarditis in the past. She is on ampicillin and ceftriaxone for treatment. We will continue these medications. Continue antibiotics. The patient's abscess now appears to be open. Surgery is following. We will continue to monitor. 3. Aortic valve replacement. The patient presented with a supratherapeutic INR and is currently subtherapeutic. Initially, she was placed on heparin GTT. This was discontinued in favor of Lovenox 100 b.i.d.. She will continue her home dose of Coumadin. We will continue to monitor daily INRs until INR of 2.5 to 3.5 is reached and then her Lovenox can be discontinued. 4. Anemia. The patient presented with a microcytic anemia. Negative fecal occult blood test. The patient had low iron only. Her anemia could likely be due to infection versus iron deficiency. She has been started on p.o. iron. DISCHARGE PLAN: Ms. Armijo will be discharged to swing bed status. This is a summarized report of a complex medical history and hospital stay. For further details, please see the entire medical record. TIME SPENT: Approximately 30 minutes was spent on this transfer to swing status. ROOPA NI [id number]/[facility] #: [id number] ISAD[place]
== END 2019-12-30 18:30 | disposition swing bed (61) | DRG 193 ==
LOC: ED 12:50 → MED 19:25 → MEDTELE 12-29 08:29
PROVIDERS: ADMIT Nurse Practitioner Family; ATTEND Internal Medicine
PROC: B246ZZ4 Ultrasonography of Right and Left Heart, Transesophageal (ICD-10-PCS; principal; 2019-12-28 10:00)
PROC: 05HY33Z Insertion of Infusion Device into Upper Vein, Percutaneous Approach (ICD-10-PCS; 2019-12-29)
DX: I33.0 Acute and subacute infective endocarditis (principal); R78.81 Bacteremia; L02.414 Cutaneous abscess of left upper limb; L03.114 Cellulitis of left upper limb; Z68.41 Body mass index [BMI] 40.0-44.9, adult; B95.2 Enterococcus as the cause of diseases classified elsewhere; R06.00 Dyspnea, unspecified; D50.8 Other iron deficiency anemias; R79.1 Abnormal coagulation profile; R50.9 Fever, unspecified; E66.9 Obesity, unspecified; B19.20 Unspecified viral hepatitis C without hepatic coma; F41.8 Other specified anxiety disorders; R06.02 Shortness of breath; F19.21 Other psychoactive substance dependence, in remission; F17.210 Nicotine dependence, cigarettes, uncomplicated; R21 Rash and other nonspecific skin eruption; F10.21 Alcohol dependence, in remission; Z95.2 Presence of prosthetic heart valve; Z86.19 Personal history of other infectious and parasitic diseases; Z79.01 Long term (current) use of anticoagulants; Z79.899 Other long term (current) drug therapy; Z83.3 Family history of diabetes mellitus
CPT/HCPCS: 36415; 71045; 80048; 80053; 80307; 81003; 82272; 82565; 82607; 82746; 83540; 83550; 83735; 83880; 84443; 84484; 84520; 84702; 85025; 85027; 85610; 85652; 85730; 86140; 86617; 87040; 87070; 87077; 87186; 87205; 87389; 87635; 93005; 93312; 93325; 96365; 96367; 99156; 99157; 99284; A9270-GY; C1751; G0480; J0692; J0696; J1644; J2250; J2310; J3010; J3030; J3370; U0003

== ENCOUNTER 2021-03-26 22:23 | Inpatient (IN) ==
[2021-03-27 02:21] LABS: ABS Basophils 0.1 10^3/ul (0-0.2); ABS Eosinophils 0.2 10^3/ul (0-0.6); ABS Lymphocytes 1.9 10^3/ul (1.0-4.8); ABS Monocytes 0.6 10^3/ul (0-0.8); Eosinophil % 2.1 %; Hematocrit 39 % (35-47); Hemoglobin 13.1 g/dL (12.0-16.0); Lymphocyte % 24.9 %; Mean Corpuscular HGB Conc 33 g/dL (31-36); Mean Corpuscular Hemoglobin 29 pg (27-31); Mean Corpuscular Volume 88 fL (80-97); Mean Platelet Volume 7.8 fL (7.4-10.4); Platelet Count 216 10^3/uL (150-450); Red Blood Count 4.48 10^6 /uL (3.70-4.87); Red Cell Distribution Width 15 % (10-15); White Blood Count 7.7 10^3/uL (3.5-10.8)
[2021-03-27 02:28] LABS: INR 2.83 (0.86-1.15)
[2021-03-27 02:38] LABS: ALT 24 U/L (7-52); AST 24 U/L (13-39); Albumin 3.8 g/dL (3.2-5.2); Albumin/Globulin Ratio 1.3 (1-3); Alkaline Phosphatase 105 U/L (35-149); Anion Gap 5 mmol/L (2-11); Blood Urea Nitrogen 17 mg/dL (6-24); CO2 Carbon Dioxide 24 mmol/L (22-32); Calcium 8.8 mg/dL (8.6-10.3); Chloride 109 mmol/L (101-111); EGFR African American 90.7 (>60); Globulin 2.9 g/dL (2-4); Glucose 104 mg/dL (70-100); Potassium 3.6 mmol/L (3.5-5.0); Sodium 138 mmol/L (135-145); Total Protein 6.7 g/dL (6.4-8.9)
[2021-03-27 02:46] LABS: HCG Pregnancy < 0.60 mIU/mL
[2021-03-27] MEDS ORDERED: Vancomycin 1,000 MG in NS 0.9% 250 ml 250 ML IVPB ONE (02:46)
[2021-03-27] MEDS ORDERED: Vancomycin per Pharmacy 1 EA NOTE FOLLOW UP SCH (03:00)
[2021-03-27 03:13] LABS: C Reactive Protein 17.41 mg/L (<8.01)
[2021-03-27] MEDS: cefTRIAXone 1 gm/50 mL NS BAG 1 GM/50 ML BAG IVPB SCH ×2 (04:53→07:50)
[2021-03-27 05:39] LABS: INR 2.8 (0.86-1.15)
[2021-03-27] MEDS ORDERED: Acetaminophen IV 1 GM/100ML 100 ML IV ONE (06:37)
[2021-03-27] MEDS: Venlafaxine XR 75 mg PO SCH (08:57)
[2021-03-27] MEDS: Buprenorphine 2 mg SL TAB SL SCH (09:27)
[2021-03-27] MEDS: Vancomycin 1,500 MG in NS 0.9% 250 ml 250 ML IVPB SCH (13:02)
[2021-03-27] MEDS: Warfarin DAILY REMINDER **NOTE FOLLOW UP SCH (16:14)
[2021-03-27] MEDS ORDERED: Heparin 5000 UNITS/ML 1 mL VIAL IV SCH (17:00)
[2021-03-27] MEDS ORDERED: Heparin DRIP 25,000 UNITS BAG 25,000 UNITS/500 ML BAG IV SCH (17:00)
[2021-03-27 17:32] LABS: ABS Eosinophils 0.1 10^3/ul (0-0.6); ABS Lymphocytes 1.4 10^3/ul (1.0-4.8); ABS Monocytes 0.3 10^3/ul (0-0.8); ABS Neutrophils 4.3 10^3/ul (1.5-7.7); Eosinophil % 2.4 %; Hematocrit 39 % (35-47); Lymphocyte % 22.4 %; Mean Corpuscular HGB Conc 34 g/dL (31-36); Mean Corpuscular Hemoglobin 30 pg (27-31); Mean Corpuscular Volume 88 fL (80-97); Mean Platelet Volume 7.4 fL (7.4-10.4); Platelet Count 210 10^3/uL (150-450); Red Blood Count 4.39 10^6 /uL (3.70-4.87); Red Cell Distribution Width 15 % (10-15); White Blood Count 6.2 10^3/uL (3.5-10.8)
[2021-03-27 17:54] LABS: EGFR African American 79.1 (>60); EGFR Non-African American 65.4 (>60)
[2021-03-28] MEDS: Vancomycin 1,500 MG in NS 0.9% 250 ml 250 ML IVPB SCH ×2 (01:21→12:05)
[2021-03-28] MEDS: cefTRIAXone 1 gm/50 mL NS BAG 1 GM/50 ML BAG IVPB SCH (04:41)
[2021-03-28 06:42] LABS: ABS Eosinophils 0.1 10^3/ul (0-0.6); ABS Lymphocytes 1.5 10^3/ul (1.0-4.8); ABS Monocytes 0.3 10^3/ul (0-0.8); ABS Neutrophils 3.8 10^3/ul (1.5-7.7); Eosinophil % 2.3 %; Hematocrit 36 % (35-47); Hemoglobin 12.2 g/dL (12.0-16.0); Lymphocyte % 25.9 %; Mean Corpuscular HGB Conc 34 g/dL (31-36); Mean Corpuscular Hemoglobin 30 pg (27-31); Mean Corpuscular Volume 88 fL (80-97); Mean Platelet Volume 8.1 fL (7.4-10.4); Nucleated Red Blood Cells % 0.1; Platelet Count 197 10^3/uL (150-450); Red Blood Count 4.14 10^6 /uL (3.70-4.87); Red Cell Distribution Width 15 % (10-15); White Blood Count 5.8 10^3/uL (3.5-10.8)
[2021-03-28 06:53] LABS: Activated Partial Thrombo Time 86.3 seconds (26.0-38.0); INR 1.89 (0.86-1.15)
[2021-03-28 06:54] LABS: Calcium 8.3 mg/dL (8.6-10.3); Potassium 3.9 mmol/L (3.5-5.0)
[2021-03-28 07:00] LABS: C Reactive Protein 14.53 mg/L (<8.01); EGFR African American 93.2 (>60)
[2021-03-28] MEDS: Buprenorphine 2 mg SL TAB SL SCH (08:08)
[2021-03-28] MEDS: Venlafaxine XR 75 mg PO SCH (08:09)
[2021-03-28] MEDS ORDERED: Lidocaine 2% PF 5 ML VIAL INJ ONE (14:26)
[2021-03-28] MEDS ORDERED: Heparin DRIP 25,000 UNITS BAG 25,000 UNITS/500 ML BAG IV SCH (16:15)
[2021-03-28] MEDS ORDERED: Heparin 5000 UNITS/ML 1 mL VIAL IV SCH (17:00)
[2021-03-28] MEDS: Warfarin DAILY REMINDER **NOTE FOLLOW UP SCH (19:22)
[2021-03-29] MEDS: Vancomycin 1,500 MG in NS 0.9% 250 ml 250 ML IVPB SCH (00:59)
[2021-03-29] MEDS: cefTRIAXone 1 gm/50 mL NS BAG 1 GM/50 ML BAG IVPB SCH (05:23)
[2021-03-29 06:37] LABS: ABS Eosinophils 0.1 10^3/ul (0-0.6); ABS Lymphocytes 1.6 10^3/ul (1.0-4.8); ABS Monocytes 0.4 10^3/ul (0-0.8); ABS Neutrophils 3.3 10^3/ul (1.5-7.7); Eosinophil % 1.9 %; Hematocrit 36 % (35-47); Hemoglobin 12.2 g/dL (12.0-16.0); Lymphocyte % 29.2 %; Mean Corpuscular HGB Conc 34 g/dL (31-36); Mean Corpuscular Hemoglobin 30 pg (27-31); Mean Corpuscular Volume 88 fL (80-97); Mean Platelet Volume 7.8 fL (7.4-10.4); Nucleated Red Blood Cells % 0.1; Platelet Count 210 10^3/uL (150-450); Red Cell Distribution Width 15 % (10-15); White Blood Count 5.3 10^3/uL (3.5-10.8)
[2021-03-29 06:55] LABS: EGFR African American 85.1 (>60); EGFR Non-African American 70.3 (>60)
[2021-03-29] MEDS: Buprenorphine 2 mg SL TAB SL SCH (09:10)
[2021-03-29] MEDS: Venlafaxine XR 75 mg PO SCH (09:19)
[2021-03-29] MEDS ORDERED: Vancomycin Trough Check NOTE FOLLOW UP ONE (11:30)
[2021-03-29 14:20] LABS: Vancomycin Trough 21.3 mcg/mL
[2021-03-29 15:07] LABS: EGFR Non-African American 68.6 (>60)
[2021-03-29] MEDS ORDERED: Warfarin per PHARMACY **NOTE FOLLOW UP SCH (16:00)
[2021-03-29 16:40] LABS: Activated Partial Thrombo Time 46.1 seconds (26.0-38.0); INR 1.32 (0.86-1.15)
[2021-03-29] MEDS: Heparin DRIP 25,000 UNITS BAG 25,000 UNITS/500 ML BAG IV SCH (19:26)
[2021-03-29] MEDS: Warfarin DAILY REMINDER **NOTE FOLLOW UP SCH (19:28)
[2021-03-29] MEDS ORDERED: Senna TAB 8.6 mg TAB PO PRN (23:01)
[2021-03-30] MEDS: Heparin 5000 UNITS/ML 1 mL VIAL IV SCH ×2 (02:49→18:14)
[2021-03-30] MEDS ORDERED: Vancomycin Trough Check NOTE FOLLOW UP ONE (06:00)
[2021-03-30] MEDS: cefTRIAXone 1 gm/50 mL NS BAG 1 GM/50 ML BAG IVPB SCH (06:14)
[2021-03-30] MEDS: Vancomycin 1,500 MG in NS 0.9% 250 ml 250 ML IVPB SCH (07:50)
[2021-03-30] MEDS: Venlafaxine XR 75 mg PO SCH (09:00)
[2021-03-30] MEDS: Buprenorphine 2 mg SL TAB SL SCH (09:01)
[2021-03-30] MEDS: Polyethylene Glycol 3350 17 GM PACKET PO PRN (10:03)
[2021-03-30 10:08] LABS: Activated Partial Thrombo Time 199.6 seconds (26.0-38.0)
[2021-03-30 10:44] LABS: INR 1.28 (0.86-1.15)
[2021-03-30] MEDS: Vancomycin 1,250 MG in NS 0.9% 250 ml 250 ML IVPB SCH (13:02)
[2021-03-30 15:09] LABS: ABS Eosinophils 0.2 10^3/ul (0-0.6); ABS Lymphocytes 1.4 10^3/ul (1.0-4.8); ABS Monocytes 0.4 10^3/ul (0-0.8); ABS Neutrophils 3.6 10^3/ul (1.5-7.7); Eosinophil % 2.8 %; Hematocrit 38 % (35-47); Hemoglobin 12.9 g/dL (12.0-16.0); Lymphocyte % 24.8 %; Mean Corpuscular HGB Conc 34 g/dL (31-36); Mean Corpuscular Hemoglobin 30 pg (27-31); Mean Corpuscular Volume 88 fL (80-97); Mean Platelet Volume 8.5 fL (7.4-10.4); Nucleated Red Blood Cells % 0.1; Platelet Count 228 10^3/uL (150-450); Red Blood Count 4.35 10^6 /uL (3.70-4.87); Red Cell Distribution Width 15 % (10-15); White Blood Count 5.6 10^3/uL (3.5-10.8)
[2021-03-30] MEDS: Heparin DRIP 25,000 UNITS BAG 25,000 UNITS/500 ML BAG IV SCH ×2 (16:16→18:14)
[2021-03-30] MEDS: Warfarin DAILY REMINDER **NOTE FOLLOW UP SCH (16:17)
[2021-03-31 07:44] LABS: ABS Eosinophils 0.2 10^3/ul (0-0.6); ABS Lymphocytes 1.1 10^3/ul (1.0-4.8); ABS Monocytes 0.3 10^3/ul (0-0.8); ABS Neutrophils 2.9 10^3/ul (1.5-7.7); Eosinophil % 3.4 %; Hematocrit 36 % (35-47); Hemoglobin 12.2 g/dL (12.0-16.0); Mean Corpuscular HGB Conc 34 g/dL (31-36); Mean Corpuscular Hemoglobin 30 pg (27-31); Mean Corpuscular Volume 87 fL (80-97); Mean Platelet Volume 7.9 fL (7.4-10.4); Platelet Count 193 10^3/uL (150-450); Red Cell Distribution Width 15 % (10-15); White Blood Count 4.5 10^3/uL (3.5-10.8)
[2021-03-31 07:52] LABS: INR 1.32 (0.86-1.15)
[2021-03-31] MEDS: Vancomycin 1,250 MG in NS 0.9% 250 ml 250 ML IVPB SCH ×3 (08:00→23:16)
[2021-03-31 08:05] LABS: Albumin 3.4 g/dL (3.2-5.2); Albumin/Globulin Ratio 1.2 (1-3); C Reactive Protein 7.02 mg/L (<8.01); Calcium 8.1 mg/dL (8.6-10.3); EGFR African American 102.9 (>60); EGFR Non-African American 85.1 (>60); Globulin 2.8 g/dL (2-4); Potassium 3.5 mmol/L (3.5-5.0); Total Bilirubin 0.2 mg/dL (0.2-1.0); Total Protein 6.2 g/dL (6.4-8.9)
[2021-03-31] MEDS: cefTRIAXone 1 gm/50 mL NS BAG 1 GM/50 ML BAG IVPB SCH (09:24)
[2021-03-31] MEDS: Venlafaxine XR 75 mg PO SCH (09:25)
[2021-03-31] MEDS: Polyethylene Glycol 3350 17 GM PACKET PO PRN (09:25)
[2021-03-31] MEDS: Buprenorphine 2 mg SL TAB SL SCH (09:26)
[2021-03-31] MEDS: Heparin DRIP 25,000 UNITS BAG 25,000 UNITS/500 ML BAG IV SCH (13:32)
[2021-03-31] MEDS: Heparin 5000 UNITS/ML 1 mL VIAL IV SCH (15:06)
[2021-03-31] MEDS: Warfarin DAILY REMINDER **NOTE FOLLOW UP SCH (18:17)
[2021-04-01] MEDS: cefTRIAXone 1 gm/50 mL NS BAG 1 GM/50 ML BAG IVPB SCH (04:28)
[2021-04-01 05:05] LABS: INR 1.6 (0.86-1.15)
[2021-04-01 05:11] LABS: Activated Partial Thrombo Time 108.9 seconds (26.0-38.0)
[2021-04-01 08:17] LABS: EGFR African American 88.4 (>60); Vancomycin Trough 28.9 mcg/mL
[2021-04-01] MEDS ORDERED: Vancomycin Trough Check NOTE FOLLOW UP ONE (09:30)
[2021-04-01] MEDS: Venlafaxine XR 75 mg PO SCH (10:08)
[2021-04-01] MEDS: Polyethylene Glycol 3350 17 GM PACKET PO PRN (10:09)
[2021-04-01] MEDS: Vancomycin 1,250 MG in NS 0.9% 250 ml 250 ML IVPB SCH ×2 (10:11→14:35)
[2021-04-01] MEDS: Buprenorphine 2 mg SL TAB SL SCH (10:12)
[2021-04-01] MEDS: Heparin DRIP 25,000 UNITS BAG 25,000 UNITS/500 ML BAG IV SCH ×2 (11:33→11:42)
[2021-04-01] MEDS ORDERED: Vancomycin 1,250 MG in NS 0.9% 250 ml 250 ML IVPB SCH (14:30)
[2021-04-01] MEDS: Warfarin DAILY REMINDER **NOTE FOLLOW UP SCH (17:31)
[2021-04-01] MEDS: Heparin 5000 UNITS/ML 1 mL VIAL IV SCH (20:20)
[2021-04-01] MEDS ORDERED: Buprenorphine 2 mg SL TAB SL ONE (20:40)
[2021-04-02] MEDS ORDERED: Alteplase (CATHFLO) 2 MG VIAL IV ONE (02:11)
[2021-04-02] MEDS: cefTRIAXone 1 gm/50 mL NS BAG 1 GM/50 ML BAG IVPB SCH (04:34)
[2021-04-02 04:48] LABS: INR 1.86 (0.86-1.15)
[2021-04-02 05:03] LABS: EGFR Non-African American 67.7 (>60)
[2021-04-02] MEDS: Venlafaxine XR 75 mg PO SCH (08:36)
[2021-04-02] MEDS: Polyethylene Glycol 3350 17 GM PACKET PO PRN (08:36)
[2021-04-02] MEDS: Buprenorphine 2 mg SL TAB SL SCH (08:36)
[2021-04-02 12:10] VITALS: BP 114/73
[2021-04-02] MEDS: Enoxaparin 100 MG/ML SYR SUBCUT SCH ×2 (13:25→13:30)
[2021-04-04] MEDS ORDERED: Vancomycin Trough Check NOTE FOLLOW UP ONE (14:00)
== END 2021-04-02 15:45 | disposition home or self-care (01) | DRG 364 ==
LOC: MEDTELE 22:23 → ED 22:23 → MEDTELE 03-28 01:15
PROVIDERS: ADMIT Hospitalist; ATTEND Hospitalist

== ENCOUNTER 2021-05-20 18:25 | Inpatient (IN) ==
[2021-05-21 00:33] LABS: Albumin 4.2 g/dL (3.2-5.2); Calcium 9.5 mg/dL (8.6-10.3); Total Bilirubin 0.3 mg/dL (0.2-1.0)
[2021-05-21 00:39] LABS: Albumin/Globulin Ratio 1.1 (1-3); C Reactive Protein 17.42 mg/L (<8.01); EGFR African American 102.9 (>60); EGFR Non-African American 85.1 (>60); Globulin 3.9 g/dL (2-4); Total Protein 8.1 g/dL (6.4-8.9)
[2021-05-21 00:50] LABS: ABS Basophils 0.1 10^3/ul (0-0.2); ABS Eosinophils 0.2 10^3/ul (0-0.6); ABS Lymphocytes 2.8 10^3/ul (1.0-4.8); ABS Monocytes 0.5 10^3/ul (0-0.8); ABS Neutrophils 6.2 10^3/ul (1.5-7.7); Eosinophil % 2.4 %; Hematocrit 40 % (35-47); Hemoglobin 13.8 g/dL (12.0-16.0); Lymphocyte % 28.8 %; Mean Corpuscular HGB Conc 34 g/dL (31-36); Mean Corpuscular Hemoglobin 29 pg (27-31); Mean Corpuscular Volume 84 fL (80-97); Nucleated Red Blood Cells % 0.3; Red Blood Count 4.76 10^6 /uL (3.70-4.87); Red Cell Distribution Width 15 % (10-15); White Blood Count 9.9 10^3/uL (3.5-10.8)
[2021-05-21 01:45] LABS: Mean Platelet Volume 7.8 fL (7.4-10.4); Platelet Count 298 10^3/uL (150-450)
[2021-05-21 01:56] LABS: Erythrocyte Sed Rate 23 mm/Hr (0-19)
[2021-05-21] MEDS ORDERED: Potassium Chlor 20 meq TAB.ER PO ONE ×2 (01:56→11:39)
[2021-05-21 01:58] LABS: Potassium 2.7 mmol/L (3.5-5.0)
[2021-05-21] MEDS ORDERED: Vancomycin 1,250 MG in NS 0.9% 250 ml 250 ML IVPB ONE (02:57)
[2021-05-21] MEDS ORDERED: Ondansetron 4 mg VIAL 2 MG/ML 2 ml VIAL IV PRN (03:56)
[2021-05-21] MEDS ORDERED: Vancomycin 1,000 MG in NS 0.9% 250 ml 250 ML IVPB ONE (03:56)
[2021-05-21] MEDS ORDERED: Vancomycin per Pharmacy 1 EA NOTE FOLLOW UP SCH (04:00)
[2021-05-21 04:30] LABS: INR 1.93 (0.86-1.15)
[2021-05-21] MEDS ORDERED: Cefepime 1 GM in Dextrose 1 GM/50 ML BAG IV SCH (05:00)
[2021-05-21 05:09] LABS: Rapid COVID-19 Molecular Undetected (Undetected)
[2021-05-21] MEDS ORDERED: Buprenorphine 2 mg SL TAB PO SCH (06:00)
[2021-05-21] MEDS ORDERED: Magnesium Sulfate 2 gm BAG 2 GM/50 ML BAG IVPB ONE (08:01)
[2021-05-21] MEDS ORDERED: NS 0.9% w/ 40 Meq KCL 1000 ML 1,000 ML IV ONE (08:06)
[2021-05-21] MEDS ORDERED: Potassium Chlor 20 meq TAB.ER PO SCH (09:00)
[2021-05-21 09:44] LABS: ABS Eosinophils 0.1 10^3/ul (0-0.6); ABS Lymphocytes 1.5 10^3/ul (1.0-4.8); ABS Monocytes 0.4 10^3/ul (0-0.8); ABS Neutrophils 8.9 10^3/ul (1.5-7.7); Eosinophil % 0.7 %; Hematocrit 39 % (35-47); Hemoglobin 13.2 g/dL (12.0-16.0); Lymphocyte % 13.7 %; Mean Corpuscular HGB Conc 34 g/dL (31-36); Mean Corpuscular Hemoglobin 28 pg (27-31); Mean Corpuscular Volume 85 fL (80-97); Mean Platelet Volume 7.2 fL (7.4-10.4); Nucleated Red Blood Cells % 0.1; Platelet Count 287 10^3/uL (150-450); Red Blood Count 4.66 10^6 /uL (3.70-4.87); Red Cell Distribution Width 15 % (10-15)
[2021-05-21 10:00] LABS: Calcium 9.1 mg/dL (8.6-10.3); EGFR African American 106.1 (>60); EGFR Non-African American 87.6 (>60); Magnesium 2.1 mg/dL (1.9-2.7)
[2021-05-21 10:10] LABS: Potassium 2.3 mmol/L (3.5-5.0)
[2021-05-21] MEDS ORDERED: KCL 10 MEQ/50 ML IVPREMIX 10 MEQ/50 ML BAG ONE (10:44)
[2021-05-21] MEDS: KCL 10 MEQ/50 ML IVPREMIX 10 MEQ/50 ML BAG IV SCH ×2 (10:47→14:40)
[2021-05-21] MEDS: Potassium Chlor 20 meq TAB.ER PO SCH (11:12)
[2021-05-21] MEDS: Buprenorphine 2 mg SL TAB SL SCH ×3 (11:12→21:15)
[2021-05-21] MEDS: Venlafaxine XR 75 mg PO SCH (11:13)
[2021-05-21] MEDS: Potassium Chloride LIQUID 20 MEQ/15 ML LIQUID PO SCH ×2 (11:15→21:45)
[2021-05-21] MEDS ORDERED: Heparin DRIP 25,000 UNITS BAG 25,000 UNITS/500 ML BAG IV SCH (12:15)
[2021-05-21] MEDS ORDERED: Naloxone 0.4 mg VIAL 0.4 mg/ml 1 ml VIAL IV PRN (12:18)
[2021-05-21] MEDS ORDERED: Buffered Lidocaine 1% SYRIN 1 ml INTRADERM ONE ×2 (12:18→13:04)
[2021-05-21 12:55] LABS: ABS Eosinophils 0.1 10^3/ul (0-0.6); ABS Lymphocytes 0.9 10^3/ul (1.0-4.8); ABS Monocytes 0.4 10^3/ul (0-0.8); ABS Neutrophils 9.6 10^3/ul (1.5-7.7); Hematocrit 39 % (35-47); Hemoglobin 13.3 g/dL (12.0-16.0); Lymphocyte % 8.4 %; Mean Corpuscular HGB Conc 34 g/dL (31-36); Mean Corpuscular Hemoglobin 29 pg (27-31); Mean Corpuscular Volume 84 fL (80-97); Mean Platelet Volume 7.5 fL (7.4-10.4); Platelet Count 279 10^3/uL (150-450); Red Blood Count 4.63 10^6 /uL (3.70-4.87); Red Cell Distribution Width 15 % (10-15); White Blood Count 11.1 10^3/uL (3.5-10.8)
[2021-05-21] MEDS: Cefepime 1 GM in Dextrose 1 GM/50 ML BAG IV SCH ×2 (13:00→21:14)
[2021-05-21] MEDS ORDERED: Heparin 5000 UNITS/ML 1 mL VIAL IV SCH (13:00)
[2021-05-21] MEDS ORDERED: Lactated Ringers 1000 ml BAG 1,000 ML IV SCH (13:00)
[2021-05-21 13:12] LABS: EGFR African American 101.4 (>60); EGFR Non-African American 83.8 (>60)
[2021-05-21] MEDS: Vancomycin 1,250 MG in NS 0.9% 250 ml 250 ML IVPB SCH ×2 (16:26→23:13)
[2021-05-21 17:53] LABS: Urine Appearance Cloudy; Urine Bilirubin Negative (Negative); Urine Blood Negative (Negative); Urine Color Yellow; Urine Glucose Negative (Negative); Urine Ketones Negative (Negative); Urine Nitrite Negative (Negative); Urine Protein Negative (Negative); Urine Specific Gravity 1.014 (1.002-1.030); Urine Urobilinogen Negative (Negative)
[2021-05-21] MEDS ORDERED: Buprenorphine 2 mg SL TAB SL SCH (18:00)
[2021-05-21 18:17] LABS: Urine Creatinine Concentration 104.45 mg/dL
[2021-05-21] MEDS: Nicotine PATCH 21 MG/24 HR PATCH TRANSDERM SCH (18:42)
[2021-05-21 20:38] LABS: Urine Potassium Concentration 38.2 mmol/L
[2021-05-22] MEDS: Buprenorphine 2 mg SL TAB SL SCH (05:28)
[2021-05-22 05:50] LABS: ABS Eosinophils 0.2 10^3/ul (0-0.6); ABS Lymphocytes 1.3 10^3/ul (1.0-4.8); ABS Monocytes 0.3 10^3/ul (0-0.8); ABS Neutrophils 5.3 10^3/ul (1.5-7.7); Eosinophil % 2.9 %; Hematocrit 35 % (35-47); Hemoglobin 11.8 g/dL (12.0-16.0); Lymphocyte % 18.4 %; Mean Corpuscular HGB Conc 34 g/dL (31-36); Mean Corpuscular Hemoglobin 29 pg (27-31); Mean Corpuscular Volume 85 fL (80-97); Mean Platelet Volume 8.5 fL (7.4-10.4); Platelet Count 235 10^3/uL (150-450); Red Blood Count 4.12 10^6 /uL (3.70-4.87); Red Cell Distribution Width 15 % (10-15); White Blood Count 7.1 10^3/uL (3.5-10.8)
[2021-05-22 06:13] LABS: INR 1.62 (0.86-1.15)
[2021-05-22 06:23] LABS: Blood Urea Nitrogen 15 mg/dL (6-24); C Reactive Protein 70.87 mg/L (<8.01); CO2 Carbon Dioxide 28 mmol/L (22-32); Calcium 8.6 mg/dL (8.6-10.3); Chloride 101 mmol/L (101-111); EGFR African American 94.5 (>60); EGFR Non-African American 78.1 (>60); Glucose 113 mg/dL (70-100); Sodium 134 mmol/L (135-145)
[2021-05-22 06:56] LABS: Anion Gap 5 mmol/L (2-11)
[2021-05-22 07:04] LABS: Activated Partial Thrombo Time 115.2 seconds (26.0-38.0)
[2021-05-22] MEDS ORDERED: Buffered Lidocaine 1% SYRIN 1 ml INTRADERM ONE (08:00)
[2021-05-22 09:07] LABS: Urine Benzodiazepine Screen None Detected (None Detect); Urine Buprenorphine Screen Presumptive Positive (None Detect); Urine Cannabinoids Screen None Detected (None Detect); Urine Fentanyl Screen None Detected (None Detect); Urine Hydrocodone Screen None Detected (None Detect); Urine Opiates Screen None Detected (None Detect)
[2021-05-22] MEDS: Venlafaxine XR 75 mg PO SCH (09:15)
[2021-05-22] MEDS: Cefepime 1 GM in Dextrose 1 GM/50 ML BAG IV SCH ×2 (09:15→22:07)
[2021-05-22] MEDS: Nicotine PATCH 21 MG/24 HR PATCH TRANSDERM SCH (09:16)
[2021-05-22] MEDS: Potassium Chlor 20 meq TAB.ER PO SCH (09:16)
[2021-05-22 10:06] LABS: Erythrocyte Sed Rate 24 mm/Hr (0-19)
[2021-05-22] MEDS: Vancomycin 1,250 MG in NS 0.9% 250 ml 250 ML IVPB SCH ×2 (10:09→18:46)
[2021-05-22] MEDS ORDERED: Vancomycin Trough Check NOTE FOLLOW UP ONE (12:30)
[2021-05-22 13:56] LABS: EGFR Non-African American 82.6 (>60); Potassium 3.1 mmol/L (3.5-5.0)
[2021-05-22] MEDS ORDERED: fentaNYL 250 mcg/5 ml 50 MCG/ML 5 ml VIAL (250 MCG) ONE (15:19)
[2021-05-22] MEDS ORDERED: Midazolam 2 mg/2 ml VIAL 1 mg/ml 2 ml VIAL (2 mg) ONE (15:19)
[2021-05-22] MEDS ORDERED: Propofol 10 MG/ML 20 ML BTL ONE ×2 (15:19→16:11)
[2021-05-22] MEDS ORDERED: Lidocaine 2% PF 5 ML VIAL ONE (15:19)
[2021-05-22] MEDS ORDERED: Ondansetron 4 mg VIAL 2 MG/ML 2 ml VIAL ONE ×2 (15:19→15:50)
[2021-05-22] MEDS ORDERED: Ketamine HCL 50 mg/ml 10 ml VIAL (500 MG) ONE (15:20)
[2021-05-22] MEDS ORDERED: Dexamethasone IV 4 MG/ML VIAL 1 ml VIAL ONE ×2 (15:50→17:50)
[2021-05-22] MEDS ORDERED: Sodium Chloride 0.9% 10 ML ONE (15:59)
[2021-05-22] MEDS ORDERED: Potassium Chlor 20 meq TAB.ER PO ONE (16:00)
[2021-05-22] MEDS ORDERED: EPHEDrine (Pressors) 50 MG/ML VIAL ONE (16:00)
[2021-05-22] MEDS ORDERED: Phenylephrine 40 mcg/mL 10mL (400mcg) SYRINGE ONE (16:15)
[2021-05-22] MEDS ORDERED: fentaNYL 100 mcg/2 ml 50 MCG/ML VIAL ONE ×2 (16:31→17:37)
[2021-05-22] MEDS ORDERED: Bupivacaine 0.25% SDV 30 ML ONE (16:33)
[2021-05-22] MEDS ORDERED: HYDROmorphone 1 MG/1 ML SYRINGE ONE (16:51)
[2021-05-22] MEDS: fentaNYL 100 mcg/2 ml 50 MCG/ML VIAL IV PRN ×2 (17:38→17:43)
[2021-05-22] MEDS ORDERED: Bupivacaine 0.5% SDV PF 30ML VIAL ONE (17:52)
[2021-05-22] MEDS ORDERED: Warfarin per PHARMACY **NOTE FOLLOW UP SCH (19:00)
[2021-05-22] MEDS ORDERED: Al Hydrox/Mg Hydrox/Simet LIQ 30 ML UDC PO PRN (19:28)
[2021-05-22] MEDS: Senna TAB 8.6 mg TAB PO SCH (21:57)
[2021-05-22] MEDS: Enoxaparin 100 MG/ML SYR SUBCUT SCH (22:18)
[2021-05-23] MEDS: KCL 20 MEQ/100 ML IVPREMIX 20 MEQ/100 ML BAG IV SCH ×2 (00:08→01:13)
[2021-05-23] MEDS ORDERED: Potassium Chloride LIQUID 20 MEQ/15 ML LIQUID PO ONE (00:50)
[2021-05-23] MEDS: Vancomycin 1,250 MG in NS 0.9% 250 ml 250 ML IVPB SCH ×2 (00:58→11:09)
[2021-05-23 06:35] LABS: ABS Lymphocytes 0.7 10^3/ul (1.0-4.8); ABS Monocytes 0.2 10^3/ul (0-0.8); ABS Neutrophils 7.8 10^3/ul (1.5-7.7); Eosinophil % 0.1 %; Hematocrit 33 % (35-47); Hemoglobin 11.2 g/dL (12.0-16.0); Lymphocyte % 7.6 %; Mean Corpuscular HGB Conc 34 g/dL (31-36); Mean Corpuscular Hemoglobin 29 pg (27-31); Mean Corpuscular Volume 85 fL (80-97); Mean Platelet Volume 7.9 fL (7.4-10.4); Platelet Count 244 10^3/uL (150-450); Red Blood Count 3.89 10^6 /uL (3.70-4.87); Red Cell Distribution Width 15 % (10-15); White Blood Count 8.7 10^3/uL (3.5-10.8)
[2021-05-23 06:41] LABS: INR 1.24 (0.86-1.15)
[2021-05-23 06:55] LABS: CRP High Sensitivity 46.41 mg/L (<2.00); Calcium 8.3 mg/dL (8.6-10.3); EGFR African American 90.7 (>60); Magnesium 2.2 mg/dL (1.9-2.7); Potassium 4.3 mmol/L (3.5-5.0)
[2021-05-23] MEDS ORDERED: Vancomycin Trough Check NOTE FOLLOW UP ONE (08:30)
[2021-05-23] MEDS: Nicotine PATCH 21 MG/24 HR PATCH TRANSDERM SCH (09:17)
[2021-05-23] MEDS: Potassium Chlor 20 meq TAB.ER PO SCH (09:17)
[2021-05-23] MEDS: Cefepime 1 GM in Dextrose 1 GM/50 ML BAG IV SCH (09:17)
[2021-05-23] MEDS: Venlafaxine XR 75 mg PO SCH (09:17)
[2021-05-23] MEDS: Polyethylene Glycol 3350 17 GM PACKET PO PRN (09:31)
[2021-05-23] MEDS: Enoxaparin 100 MG/ML SYR SUBCUT SCH ×2 (11:30→21:35)
[2021-05-23] MEDS: cefTRIAXone 1 gm/50 mL NS BAG 1 GM/50 ML BAG IVPB SCH (17:08)
[2021-05-23] MEDS: Warfarin DAILY REMINDER **NOTE FOLLOW UP SCH (17:09)
[2021-05-23] MEDS: Senna TAB 8.6 mg TAB PO SCH (21:35)
[2021-05-24] MEDS ORDERED: Vancomycin Random Level NOTE FOLLOW UP ONE (06:00)
[2021-05-24] MEDS ORDERED: SUMAtriptan Subcut 6 MG/0.5 ML VIAL SUBCUT PRN (07:32)
[2021-05-24 08:13] LABS: CRP High Sensitivity 18.01 mg/L (<2.00); Calcium 8.3 mg/dL (8.6-10.3); EGFR African American 107.7 (>60); Magnesium 2.1 mg/dL (1.9-2.7)
[2021-05-24 08:13] LABS: ABS Basophils 0.1 10^3/ul (0-0.2); ABS Eosinophils 0.2 10^3/ul (0-0.6); ABS Lymphocytes 1.7 10^3/ul (1.0-4.8); ABS Monocytes 0.4 10^3/ul (0-0.8); ABS Neutrophils 3.1 10^3/ul (1.5-7.7); Eosinophil % 3.2 %; Hematocrit 33 % (35-47); Hemoglobin 10.9 g/dL (12.0-16.0); Lymphocyte % 31.7 %; Mean Corpuscular HGB Conc 33 g/dL (31-36); Mean Corpuscular Hemoglobin 29 pg (27-31); Mean Corpuscular Volume 87 fL (80-97); Mean Platelet Volume 8.2 fL (7.4-10.4); Platelet Count 230 10^3/uL (150-450); Red Blood Count 3.75 10^6 /uL (3.70-4.87); Red Cell Distribution Width 15 % (10-15); White Blood Count 5.4 10^3/uL (3.5-10.8)
[2021-05-24 08:17] LABS: Activated Partial Thrombo Time 46.7 seconds (26.0-38.0); INR 1.45 (0.86-1.15)
[2021-05-24] MEDS ORDERED: Flu vaccine *QUAD* 2021-22* 0.5 ML SYRINGE IM ONE (09:00)
[2021-05-24] MEDS: Nicotine PATCH 21 MG/24 HR PATCH TRANSDERM SCH (09:06)
[2021-05-24] MEDS: Venlafaxine XR 75 mg PO SCH (09:07)
[2021-05-24] MEDS: Potassium Chlor 20 meq TAB.ER PO SCH (09:08)
[2021-05-24] MEDS: Polyethylene Glycol 3350 17 GM PACKET PO PRN (09:18)
[2021-05-24] MEDS: Vancomycin 1000 MG in NS 0.9% 250 ML IVPB SCH ×2 (10:21→21:21)
[2021-05-24] MEDS: Enoxaparin 100 MG/ML SYR SUBCUT SCH ×2 (10:23→22:53)
[2021-05-24] MEDS: cefTRIAXone 1 gm/50 mL NS BAG 1 GM/50 ML BAG IVPB SCH (17:48)
[2021-05-24] MEDS: Warfarin DAILY REMINDER **NOTE FOLLOW UP SCH (17:56)
[2021-05-24] MEDS: Senna TAB 8.6 mg TAB PO SCH (21:13)
[2021-05-24] MEDS ORDERED: SUMAtriptan Subcut 6 MG/0.5 ML VIAL SUBCUT ONE (23:15)
[2021-05-25 06:02] LABS: ABS Eosinophils 0.2 10^3/ul (0-0.6); ABS Lymphocytes 1.4 10^3/ul (1.0-4.8); ABS Monocytes 0.4 10^3/ul (0-0.8); ABS Neutrophils 2.3 10^3/ul (1.5-7.7); Eosinophil % 4.5 %; Hematocrit 33 % (35-47); Hemoglobin 10.9 g/dL (12.0-16.0); Lymphocyte % 31.9 %; Mean Corpuscular HGB Conc 34 g/dL (31-36); Mean Corpuscular Hemoglobin 29 pg (27-31); Mean Corpuscular Volume 86 fL (80-97); Mean Platelet Volume 7.2 fL (7.4-10.4); Nucleated Red Blood Cells % 0.1; Platelet Count 216 10^3/uL (150-450); Red Blood Count 3.78 10^6 /uL (3.70-4.87); Red Cell Distribution Width 15 % (10-15); White Blood Count 4.3 10^3/uL (3.5-10.8)
[2021-05-25 06:07] LABS: INR 1.54 (0.86-1.15)
[2021-05-25 06:23] LABS: CRP High Sensitivity 9.37 mg/L (<2.00); Calcium 8.5 mg/dL (8.6-10.3); EGFR African American 112.9 (>60); EGFR Non-African American 93.3 (>60); Potassium 4.1 mmol/L (3.5-5.0)
[2021-05-25] MEDS: Vancomycin 1000 MG in NS 0.9% 250 ML IVPB SCH ×2 (09:13→22:27)
[2021-05-25] MEDS: Venlafaxine XR 75 mg PO SCH (10:13)
[2021-05-25] MEDS: Nicotine PATCH 21 MG/24 HR PATCH TRANSDERM SCH (10:13)
[2021-05-25] MEDS: Potassium Chlor 20 meq TAB.ER PO SCH (10:14)
[2021-05-25] MEDS: Enoxaparin 100 MG/ML SYR SUBCUT SCH ×2 (10:22→22:37)
[2021-05-25] MEDS: cefTRIAXone 1 gm/50 mL NS BAG 1 GM/50 ML BAG IVPB SCH (16:45)
[2021-05-25] MEDS: Warfarin DAILY REMINDER **NOTE FOLLOW UP SCH (16:51)
[2021-05-25] MEDS: Senna TAB 8.6 mg TAB PO SCH (22:23)
[2021-05-25] MEDS: Polyethylene Glycol 3350 17 GM PACKET PO PRN (22:26)
[2021-05-26 07:30] LABS: ABS Eosinophils 0.1 10^3/ul (0-0.6); ABS Monocytes 0.3 10^3/ul (0-0.8); ABS Neutrophils 2.2 10^3/ul (1.5-7.7); Eosinophil % 3.7 %; Hematocrit 33 % (35-47); Mean Corpuscular HGB Conc 34 g/dL (31-36); Mean Corpuscular Hemoglobin 29 pg (27-31); Mean Corpuscular Volume 86 fL (80-97); Mean Platelet Volume 6.9 fL (7.4-10.4); Nucleated Red Blood Cells % 0.1; Platelet Count 198 10^3/uL (150-450); Red Blood Count 3.79 10^6 /uL (3.70-4.87); Red Cell Distribution Width 15 % (10-15); White Blood Count 3.7 10^3/uL (3.5-10.8)
[2021-05-26 07:47] LABS: CRP High Sensitivity 6.36 mg/L (<2.00); Calcium 8.6 mg/dL (8.6-10.3); EGFR African American 112.9 (>60); EGFR Non-African American 93.3 (>60); Potassium 4.2 mmol/L (3.5-5.0)
[2021-05-26] MEDS: Venlafaxine XR 75 mg PO SCH (08:14)
[2021-05-26] MEDS: Potassium Chlor 20 meq TAB.ER PO SCH (08:14)
[2021-05-26] MEDS: Nicotine PATCH 21 MG/24 HR PATCH TRANSDERM SCH (08:14)
[2021-05-26] MEDS ORDERED: Vancomycin Trough Check NOTE FOLLOW UP ONE (08:30)
[2021-05-26 08:55] LABS: Vancomycin Trough 17.8 mcg/mL
[2021-05-26 09:25] LABS: EGFR African American 107.7 (>60)
[2021-05-26] MEDS: Enoxaparin 100 MG/ML SYR SUBCUT SCH ×2 (09:42→21:34)
[2021-05-26] MEDS: Vancomycin 1000 MG in NS 0.9% 250 ML IVPB SCH (09:42)
[2021-05-26] MEDS: cefTRIAXone 1 gm/50 mL NS BAG 1 GM/50 ML BAG IVPB SCH (14:42)
[2021-05-26 15:06] LABS: INR 1.92 (0.86-1.15)
[2021-05-26] MEDS: Warfarin DAILY REMINDER **NOTE FOLLOW UP SCH (17:04)
[2021-05-26] MEDS: Senna TAB 8.6 mg TAB PO SCH (20:28)
[2021-05-26] MEDS: Vancomycin 750 MG in NS 0.9% 250 ML IVPB SCH (21:34)
[2021-05-27 05:07] LABS: INR 2.06 (0.86-1.15)
[2021-05-27 05:22] LABS: CRP High Sensitivity 10.38 mg/L (<2.00); EGFR African American 97.1 (>60); EGFR Non-African American 80.3 (>60)
[2021-05-27 07:33] LABS: Calcium 8.6 mg/dL (8.6-10.3); Magnesium 2.2 mg/dL (1.9-2.7); Potassium 4.4 mmol/L (3.5-5.0)
[2021-05-27] MEDS: Venlafaxine XR 75 mg PO SCH (09:57)
[2021-05-27] MEDS: Potassium Chlor 20 meq TAB.ER PO SCH (09:57)
[2021-05-27] MEDS: Vancomycin 750 MG in NS 0.9% 250 ML IVPB SCH (09:57)
[2021-05-27] MEDS: Nicotine PATCH 21 MG/24 HR PATCH TRANSDERM SCH (09:57)
[2021-05-27] MEDS: Enoxaparin 100 MG/ML SYR SUBCUT SCH (10:08)
[2021-05-27 16:23] VITALS: BP 96/52
[2021-05-27] MEDS: cefTRIAXone 1 gm/50 mL NS BAG 1 GM/50 ML BAG IVPB SCH (17:01)
[2021-05-27] MEDS: Warfarin DAILY REMINDER **NOTE FOLLOW UP SCH (17:02)
[2021-05-28] MEDS ORDERED: Vancomycin Trough Check NOTE FOLLOW UP ONE (09:30)
== END 2021-05-27 16:36 | disposition swing bed (61) | DRG 316 ==
LOC: ED 18:25 → SSU 05-21 03:53 → SUATTDRO 05-21 03:53 → SSU 05-21 06:27
PROVIDERS: ADMIT Internal Medicine; ATTEND Hospitalist

== ENCOUNTER 2021-05-27 17:32 | Inpatient (IN) ==
[2021-05-27] MEDS ORDERED: Al Hydrox/Mg Hydrox/Simet LIQ 30 ML UDC PO PRN (17:46)
[2021-05-27] MEDS ORDERED: Vancomycin per Pharmacy 1 EA NOTE FOLLOW UP SCH (18:00)
[2021-05-27] MEDS ORDERED: Warfarin per PHARMACY **NOTE FOLLOW UP SCH (18:00)
[2021-05-27] MEDS: Vancomycin 750 MG in NS 0.9% 250 ML IVPB SCH (21:50)
[2021-05-28] MEDS ORDERED: Polyethylene Glycol 3350 17 GM PACKET ONE (00:52)
[2021-05-28 06:13] LABS: INR 2.03 (0.86-1.15)
[2021-05-28] MEDS ORDERED: Vancomycin Trough Check NOTE FOLLOW UP ONE (09:30)
[2021-05-28] MEDS: Venlafaxine XR 75 mg PO SCH (10:00)
[2021-05-28] MEDS: Potassium Chlor 20 meq TAB.ER PO SCH (10:00)
[2021-05-28] MEDS: Vancomycin 750 MG in NS 0.9% 250 ML IVPB SCH ×2 (14:30→22:51)
[2021-05-28] MEDS: cefTRIAXone 1 gm/50 mL NS BAG 1 GM/50 ML BAG IVPB SCH (18:20)
[2021-05-28] MEDS: Polyethylene Glycol 3350 17 GM PACKET PO PRN (21:49)
[2021-05-29] MEDS: Venlafaxine XR 75 mg PO SCH (10:28)
[2021-05-29] MEDS: Potassium Chlor 20 meq TAB.ER PO SCH (10:28)
[2021-05-29] MEDS: Vancomycin 750 MG in NS 0.9% 250 ML IVPB SCH ×2 (11:41→22:59)
[2021-05-29 15:19] LABS: INR 2.23 (0.86-1.15)
[2021-05-29] MEDS: cefTRIAXone 1 gm/50 mL NS BAG 1 GM/50 ML BAG IVPB SCH (19:42)
[2021-05-30 05:41] LABS: INR 1.9 (0.86-1.15)
[2021-05-30] MEDS: Potassium Chlor 20 meq TAB.ER PO SCH (09:08)
[2021-05-30] MEDS: Venlafaxine XR 75 mg PO SCH (09:08)
[2021-05-30] MEDS: Vancomycin 750 MG in NS 0.9% 250 ML IVPB SCH ×2 (09:09→21:02)
[2021-05-30] MEDS: cefTRIAXone 1 gm/50 mL NS BAG 1 GM/50 ML BAG IVPB SCH (18:29)
[2021-05-30] MEDS: Warfarin DAILY REMINDER **NOTE FOLLOW UP SCH (18:30)
[2021-05-30] MEDS: Polyethylene Glycol 3350 17 GM PACKET PO PRN (20:56)
[2021-05-31] MEDS: Venlafaxine XR 75 mg PO SCH (08:41)
[2021-05-31] MEDS: Potassium Chlor 20 meq TAB.ER PO SCH (08:41)
[2021-05-31] MEDS ORDERED: Vancomycin Trough Check NOTE FOLLOW UP ONE (09:30)
[2021-05-31 09:42] LABS: INR 2.61 (0.86-1.15)
[2021-05-31 09:49] LABS: Vancomycin Trough 17.7 mcg/mL
[2021-05-31] MEDS: Vancomycin 750 MG in NS 0.9% 250 ML IVPB SCH (10:18)
[2021-05-31] MEDS: cefTRIAXone 1 gm/50 mL NS BAG 1 GM/50 ML BAG IVPB SCH (16:32)
[2021-05-31] MEDS: Warfarin DAILY REMINDER **NOTE FOLLOW UP SCH (17:09)
[2021-05-31 17:45] LABS: C Reactive Protein 7.72 mg/L (<8.01)
[2021-05-31] MEDS: Vancomycin 500 MG in NS 0.9% 250 ML IVPB SCH (21:03)
[2021-06-01 04:49] LABS: INR 3.1 (0.86-1.15)
[2021-06-01] MEDS: Venlafaxine XR 75 mg PO SCH (10:44)
[2021-06-01] MEDS: Potassium Chlor 20 meq TAB.ER PO SCH (10:44)
[2021-06-01] MEDS: Vancomycin 500 MG in NS 0.9% 250 ML IVPB SCH ×2 (10:51→21:03)
[2021-06-01] MEDS: cefTRIAXone 1 gm/50 mL NS BAG 1 GM/50 ML BAG IVPB SCH (17:08)
[2021-06-01] MEDS: SUMAtriptan Subcut 6 MG/0.5 ML VIAL SUBCUT PRN (17:09)
[2021-06-01] MEDS: Warfarin DAILY REMINDER **NOTE FOLLOW UP SCH (17:09)
[2021-06-01] MEDS: Polyethylene Glycol 3350 17 GM PACKET PO PRN (23:51)
[2021-06-02 05:29] LABS: Hematocrit 34 % (35-47); Hemoglobin 11.1 g/dL (12.0-16.0); Mean Platelet Volume 6.7 fL (7.4-10.4); Platelet Count 264 10^3/uL (150-450)
[2021-06-02 05:39] LABS: INR 3.01 (0.86-1.15)
[2021-06-02] MEDS: Venlafaxine XR 75 mg PO SCH (09:23)
[2021-06-02] MEDS: Potassium Chlor 20 meq TAB.ER PO SCH (09:24)
[2021-06-02] MEDS: Vancomycin 500 MG in NS 0.9% 250 ML IVPB SCH ×2 (11:54→22:22)
[2021-06-02] MEDS: Warfarin DAILY REMINDER **NOTE FOLLOW UP SCH (17:00)
[2021-06-02] MEDS: cefTRIAXone 1 gm/50 mL NS BAG 1 GM/50 ML BAG IVPB SCH (17:29)
[2021-06-03] MEDS: SUMAtriptan Subcut 6 MG/0.5 ML VIAL SUBCUT PRN ×2 (05:40→12:11)
[2021-06-03 06:31] LABS: ABS Eosinophils 0.1 10^3/ul (0-0.6); ABS Lymphocytes 0.9 10^3/ul (1.0-4.8); ABS Monocytes 0.5 10^3/ul (0-0.8); ABS Neutrophils 3.9 10^3/ul (1.5-7.7); Eosinophil % 1.2 %; Hematocrit 33 % (35-47); Hemoglobin 11.2 g/dL (12.0-16.0); Lymphocyte % 16.6 %; Mean Corpuscular HGB Conc 33 g/dL (31-36); Mean Corpuscular Hemoglobin 28 pg (27-31); Mean Corpuscular Volume 85 fL (80-97); Mean Platelet Volume 7.1 fL (7.4-10.4); Platelet Count 245 10^3/uL (150-450); Red Blood Count 3.93 10^6 /uL (3.70-4.87); Red Cell Distribution Width 15 % (10-15); White Blood Count 5.4 10^3/uL (3.5-10.8)
[2021-06-03 06:54] LABS: Albumin 3.7 g/dL (3.2-5.2); Albumin/Globulin Ratio 1.1 (1-3); Calcium 9.1 mg/dL (8.6-10.3); EGFR African American 86.1 (>60); EGFR Non-African American 71.2 (>60); Globulin 3.5 g/dL (2-4); Potassium 4.2 mmol/L (3.5-5.0); Total Bilirubin 0.2 mg/dL (0.2-1.0); Total Protein 7.2 g/dL (6.4-8.9)
[2021-06-03 08:46] VITALS: BP 100/57
[2021-06-03] MEDS: Potassium Chlor 20 meq TAB.ER PO SCH (09:00)
[2021-06-03] MEDS: Venlafaxine XR 75 mg PO SCH (09:00)
[2021-06-03] MEDS ORDERED: Vancomycin Trough Check NOTE FOLLOW UP ONE (09:30)
[2021-06-03 09:35] LABS: INR 4.02 (0.86-1.15)
[2021-06-03] MEDS: Vancomycin 500 MG in NS 0.9% 250 ML IVPB SCH (09:57)
[2021-06-03] MEDS: Warfarin DAILY REMINDER **NOTE FOLLOW UP SCH (16:05)
[2021-06-03] MEDS: cefTRIAXone 1 gm/50 mL NS BAG 1 GM/50 ML BAG IVPB SCH (16:19)
[2021-06-03] MEDS ORDERED: Warfarin - No Order Today **NOTE FOLLOW UP ONE (17:00)
[2021-06-10] MEDS ORDERED: Vancomycin Trough Check NOTE FOLLOW UP ONE (09:30)
== END 2021-06-03 20:20 | disposition left against medical advice (07) | DRG 351 ==
LOC: SSU 17:33 → SUATTDRO 17:33 → MEDTELE 23:49 → SSU 06-03 10:39
PROVIDERS: ADMIT Internal Medicine; ATTEND Internal Medicine

== ENCOUNTER 2023-11-27 03:27 | Observation (INO) ==
[2023-11-27 04:51] LABS: INR 2.36 (0.83-1.13)
[2023-11-27 04:53] LABS: Hematocrit 25.1 % (35-45); Hemoglobin 7.8 g/dL (11.5-14.3); Mean Corpuscular Hemoglobin 19.9 pg (27-33); Mean Corpuscular Hgb Conc 31.1 g/dL (31-36); Mean Platelet Volume 6.6 fL (7.5-11.2); Platelet Count 450 10^3/uL (150-450); Red Blood Count 3.92 10^6/uL (3.63-4.92); Red Cell Distribution Width 20.7 % (12-17); White Blood Count 8.2 10^3/uL (3.8-11.8)
[2023-11-27 05:23] LABS: ABS Basophils 0.1 10^3/uL (0.0-0.1); ABS Eosinophils 0.2 10^3/uL (0.0-0.5); ABS Monocytes 0.4 10^3/uL (0.0-0.9); ABS Neutrophils 5.5 10^3/uL (1.5-7.6); ABS Nucleated RBC 0.01 10^3/ul; Anisocytosis 2+; Eosinophil % 2.4 %; Lymphocyte % 24.7 %; Microcytosis 3+; Nucleated Red Blood Cells % 0.1 %/100WBC (0.0-0.8); Polychromasia 1+; Schistocytes 1+
[2023-11-27 05:30] LABS: Albumin 3.9 g/dL (3.2-5.2); Albumin/Globulin Ratio 1.5 (1-3); Calcium 8.8 mg/dL (8.6-10.3); Creatinine, Serum 1.07 mg/dL (0.51-0.95); Globulin 2.6 g/dL (2-4); Potassium 4.1 mmol/L (3.5-5.0); Total Bilirubin 0.2 mg/dL (0.2-1.0); Total Protein 6.5 g/dL (6.4-8.9)
[2023-11-27 06:03] LABS: High Sensitivity Troponin 1 Hr 5 pg/mL (<15)
[2023-11-27 07:05] LABS: % Iron Saturation 4 % (15-55); .Transferrin 345 mg/dL (203-362); Iron < 20 ug/dL (50-212); Total Iron Binding Capacity 483 mcg/dL (250-450); Unsaturated Iron Binding 463 ug/dL
[2023-11-27] MEDS: Iohexol 350 (CONTRAST) 500 ML MDV IV ONE (08:15)
[2023-11-27] MEDS ORDERED: Polyethylene Glycol 3350 17 GM PACKET PO PRN (09:58)
[2023-11-27] MEDS ORDERED: Senna TAB 8.6 mg TAB PO PRN (09:58)
[2023-11-27] MEDS ORDERED: Senna/Docusate 8.6/50 mg (NF) TAB PO PRN (10:45)
[2023-11-27] MEDS ORDERED: Docusate LIQ 100 MG/10 ML UDC PO PRN (11:56)
[2023-11-27] MEDS: Nicotine PATCH 21 MG/24 HR PATCH TRANSDERM SCH (12:56)
[2023-11-27 13:22] LABS: C Reactive Protein 4.85 mg/L (<8.01)
[2023-11-27 13:49] LABS: Hematocrit 27.3 % (35-45); Hemoglobin 8.5 g/dL (11.5-14.3)
[2023-11-27] MEDS ORDERED: SUMATRIPTAN SUCCINATE 6 MG/0.5 ML SUBCUT PRN (13:56)
[2023-11-27] MEDS: NF: Cariprazine 3 mg CAP (NF) PO SCH (14:21)
[2023-11-27] MEDS: PHENTERMINE 37.5 MG PO SCH (14:21)
[2023-11-27 14:48] LABS: Erythrocyte Sed Rate 17 mm/Hr (0-19)
[2023-11-27] MEDS ORDERED: Sulfur Hexaflouride MICROSPHR 25 MG VIAL ONE (14:58)
[2023-11-27] MEDS ORDERED: PHENTERMINE 37.5 MG PO SCH (15:07)
[2023-11-27 15:21] LABS: High Sensitivity Troponin 1 Hr 3 pg/mL (<15)
[2023-11-27 15:22] LABS: Ferritin 3.2 ng/mL (11-307)
[2023-11-27 15:26] LABS: Folate 10.29 ng/mL (5.90-24.80)
[2023-11-27 15:27] LABS: Vitamin B12 183 pg/mL (180-914)
[2023-11-27] MEDS: CMCS: LINACLOTIDE 72 MCG CAP (NF) PO SCH (15:55)
[2023-11-27] MEDS: Senna TAB 8.6 mg TAB PO PRN (15:55)
[2023-11-27] MEDS: [UNRECOGNIZED DRUG - OTHER] PO PRN (15:56)
[2023-11-27] MEDS: NICOTINE GUM 4 MG PO PRN (15:56)
[2023-11-27] MEDS ORDERED: Buprenorp/Nalox 8-2 MG FILM SL SCH (16:00)
[2023-11-27] MEDS ORDERED: Warfarin per PHARMACY **NOTE FOLLOW UP SCH ×2 (16:00)
[2023-11-27] MEDS ORDERED: Iron Sucrose 20 MG/ML 5 ML VIAL IV PUSH SCH (16:00)
[2023-11-27] MEDS: CMCS: NORETHINDRONE ACETATE 5 MG TAB (NF) PO SCH (17:05)
[2023-11-27] MEDS: Iron Sucrose 200 MG in NS 0.9% 100 ml IVPB SCH (17:05)
[2023-11-28] MEDS ORDERED: Ondansetron 4 mg VIAL 2 MG/ML 2 ml VIAL IV PRN (07:31)
[2023-11-28] MEDS ORDERED: Midazolam 10 mg/10 ml VIAL 1 mg/ml 10 ml VIAL (10 mg) ONE (08:17)
[2023-11-28] MEDS ORDERED: fentaNYL 100 mcg/2 ml 50 MCG/ML VIAL ONE (08:17)
[2023-11-28] MEDS: PTO: Cariprazine 3 mg CAP (NF) PO SCH (10:19)
[2023-11-28 11:07] VITALS: BP 126/89
[2023-11-28] MEDS: Influenza vaccine *QUAD* *2023-24* 0.5 ML SYRINGE IM ONE (12:36)
[2023-11-28] MEDS: COVID VAC 23-24(12+)(Moderna) SYR 0.5 ML IM ONE (12:40)
== END 2023-11-28 13:00 | disposition home or self-care (01) ==
LOC: ED 03:27 → EDHOLD 03:27 → MEDTELE 14:06
PROVIDERS: ADMIT Hospitalist; ATTEND Hospitalist

== ENCOUNTER 2024-04-13 20:28 | Observation (INO) ==
[2024-04-14 00:10] LABS: Urine Appearance Extra Turbid; Urine Bilirubin Negative (Negative); Urine Blood Negative (Negative); Urine Glucose 4+ (>=1000 mg/dL) (Negative); Urine Ketones Negative (Negative); Urine Nitrite Negative (Negative); Urine Protein Trace (Negative); Urine Specific Gravity 1.035 (1.002-1.030); Urine Urobilinogen Negative (Negative)
[2024-04-14 00:42] LABS: ABS Basophils 0.1 10^3/uL (0.0-0.1); ABS Lymphocytes 0.7 10^3/uL (1.0-4.8); ABS Monocytes 0.6 10^3/uL (0.0-0.9); ABS Neutrophils 13.3 10^3/uL (1.5-7.6); Eosinophil % 0.3 %; Hematocrit 31.9 % (35-45); Hemoglobin 10.2 g/dL (11.5-14.3); Mean Corpuscular Hgb Conc 32.1 g/dL (31-36); Mean Platelet Volume 7.1 fL (7.5-11.2); Platelet Count 315 10^3/uL (150-450); Red Blood Count 4.08 10^6/uL (3.63-4.92); Red Cell Distribution Width 19.3 % (12-17); White Blood Count 14.8 10^3/uL (3.8-11.8)
[2024-04-14 00:44] LABS: Urine Color Light-Yellow
[2024-04-14 01:38] LABS: ALT 18 U/L (7-52); AST 19 U/L (13-39); Albumin 3.8 g/dL (3.2-5.2); Albumin/Globulin Ratio 1.4 (1-3); Alkaline Phosphatase 80 U/L (35-149); Anion Gap 9 mmol/L (2-16); Blood Urea Nitrogen 12 mg/dL (6-24); C Reactive Protein 149.43 mg/L (<8.01); CO2 Carbon Dioxide 20 mmol/L (22-32); Calcium 8.4 mg/dL (8.6-10.3); Chloride 108 mmol/L (101-111); Creatinine, Serum 0.75 mg/dL (0.51-0.95); Globulin 2.7 g/dL (2-4); Glucose 110 mg/dL (70-100); INR 12.53 (0.83-1.13); Potassium 3.6 mmol/L (3.5-5.0); Sodium 137 mmol/L (135-145); Total Bilirubin 0.3 mg/dL (0.2-1.0); Total Protein 6.5 g/dL (6.4-8.9); eGFR CKD-EPI 105.7 (>60)
[2024-04-14 01:44] LABS: HCG Pregnancy < 0.60 mIU/mL
[2024-04-14] MEDS: Piperacillin/Tazobac 3.375 BAG 3.375 GM/100 ML BAG IV ONE (02:00)
[2024-04-14] MEDS ORDERED: Zosyn per Pharmacy NOTE FOLLOW UP SCH (02:00)
[2024-04-14] MEDS: Phytonadione Oral Solution 5 MG/25 ML UDC PO ONE (02:09)
[2024-04-14] MEDS: Lactated Ringers 1000 ml BAG 1,000 ML IV SCH ×2 (02:36→13:29)
[2024-04-14] MEDS ORDERED: Vancomycin 1,000 MG in NS 0.9% 250 ml 250 ML IVPB ONE (03:34)
[2024-04-14] MEDS ORDERED: Vancomycin per Pharmacy 1 EA NOTE FOLLOW UP SCH (04:00)
[2024-04-14] MEDS: Vancomycin 1,750 MG in NS 0.9% 500 ml BAG 500 ML IVPB ONE (04:11)
[2024-04-14] MEDS ORDERED: ZOSYN 3.375 GM Q8H per EXTENDED INFUSION IV SCH (06:00)
[2024-04-14 06:24] LABS: ABS Eosinophils 0.1 10^3/uL (0.0-0.5); ABS Lymphocytes 0.8 10^3/uL (1.0-4.8); ABS Monocytes 0.5 10^3/uL (0.0-0.9); ABS Neutrophils 11.6 10^3/uL (1.5-7.6); Eosinophil % 0.5 %; Hematocrit 29.1 % (35-45); Hemoglobin 9.5 g/dL (11.5-14.3); Lymphocyte % 6.3 %; Mean Corpuscular Hemoglobin 25.6 pg (27-33); Mean Corpuscular Hgb Conc 32.8 g/dL (31-36); Mean Platelet Volume 6.8 fL (7.5-11.2); Platelet Count 286 10^3/uL (150-450); Red Blood Count 3.73 10^6/uL (3.63-4.92); Red Cell Distribution Width 19.4 % (12-17)
[2024-04-14 07:12] LABS: Albumin 3.4 g/dL (3.2-5.2); Albumin/Globulin Ratio 1.4 (1-3); Calcium 8.8 mg/dL (8.6-10.3); Creatinine, Serum 0.81 mg/dL (0.51-0.95); Globulin 2.5 g/dL (2-4); Magnesium 1.9 mg/dL (1.9-2.7); Potassium 3.5 mmol/L (3.5-5.0); Total Bilirubin 0.3 mg/dL (0.2-1.0); Total Protein 5.9 g/dL (6.4-8.9); eGFR CKD-EPI 96.4 (>60)
[2024-04-14 07:27] LABS: INR 11.29 (0.83-1.13)
[2024-04-14] MEDS ORDERED: cefTRIAXone 1 gm/50 mL D5W 1 GM/50 ML BAG IV SCH (09:00)
[2024-04-14] MEDS ORDERED: PHENTERMINE 37.5 MG PO SCH (09:00)
[2024-04-14] MEDS: Magnesium Sulfate 2 gm BAG 2 GM/50 ML BAG IVPB ONE (09:03)
[2024-04-14] MEDS: Potassium Chlor 20 meq TAB.ER PO ONE (09:06)
[2024-04-14] MEDS: NF:Cariprazine 3 mg CAP (NF) PO SCH (09:13)
[2024-04-14] MEDS ORDERED: Phytonadione SUBCUT/IM Adult 10 MG/ML AMP (IM or SQ not preferred route) IM ONE (10:03)
[2024-04-14] MEDS: cefTRIAXone 1 gm/50 mL D5W 1 GM/50 ML BAG IV SCH (12:35)
[2024-04-14] MEDS: Phytonadione 10 mg in 50 mL NS over 30 min IV ONE (13:37)
[2024-04-14] MEDS: Vancomycin 1,500 MG in NS 0.9% 250 ml 250 ML IVPB SCH (17:04)
[2024-04-14] MEDS ORDERED: SUMAtriptan Subcut 6 MG/0.5 ML VIAL SUBCUT PRN (18:20)
[2024-04-15 05:40] LABS: Hematocrit 30.1 % (35-45); Hemoglobin 9.6 g/dL (11.5-14.3); Mean Corpuscular Hemoglobin 25.2 pg (27-33); Mean Corpuscular Hgb Conc 31.9 g/dL (31-36); Mean Corpuscular Volume 78.9 fL (80-97); Mean Platelet Volume 7.3 fL (7.5-11.2); Platelet Count 296 10^3/uL (150-450); Red Blood Count 3.82 10^6/uL (3.63-4.92); White Blood Count 7.6 10^3/uL (3.8-11.8)
[2024-04-15 06:21] LABS: Calcium 8.4 mg/dL (8.6-10.3); Creatinine, Serum 0.73 mg/dL (0.51-0.95); Magnesium 2.2 mg/dL (1.9-2.7); Potassium 4.5 mmol/L (3.5-5.0); eGFR CKD-EPI 109.2 (>60)
[2024-04-15 06:29] LABS: INR 1.41 (0.83-1.13)
[2024-04-15] MEDS ORDERED: Warfarin per PHARMACY **NOTE FOLLOW UP SCH (10:00)
[2024-04-15] MEDS: Venlafaxine XR 75 mg PO SCH (10:41)
[2024-04-15] MEDS: ceFAZolin 1 GM ADVAN 1 GM in NS 0.9% 50 ML 50 ML IVPB SCH (11:51)
[2024-04-15 18:06] VITALS: BP 124/84
[2024-04-16] MEDS ORDERED: Vancomycin Trough Check NOTE FOLLOW UP ONE (05:30)
[2024-04-16 23:18] LABS: Anaplasma phagocytophilum Negative (Negative); B. miyamotoi PCR, B Negative (Negative); Babesia divergens/MO-1 Negative (Negative); Babesia ducani Negative (Negative); Ehrlichia chaffeensis Negative (Negative); Ehrlichia ewingii/canis Negative (Negative); Ehrlichia muris eauclairensis Negative (Negative)
[2024-04-17 13:03] LABS: IgG Immunoblot Negative (Negative); IgM Immunoblot Negative (Negative)
== END 2024-04-15 18:45 | disposition home or self-care (01) ==
LOC: ED 20:28 → EDHOLD 20:28 → SUATTDRO 04-14 02:43 → MEDTELE 04-14 09:20
PROVIDERS: ADMIT Internal Medicine; ATTEND Student in an Organized Health Care Education/Training Program